=== PATIENT | female | born 1950 | race Caucasian/White ===

== ENCOUNTER 2020-06-01 06:14 | Inpatient (IN) | payer OTHER ==
[2020-05-12 12:57] LABS: Basophils # (auto) 0.1 10 ^3/uL (0-0.2); Basophils % (auto) 0.8 % (0.0-2.0); Eosinophils # (auto) 0.1 10 ^3/uL (0-0.8); Eosinophils % (auto) 0.8 % (0.0-7.0); Hematocrit 38.8 % (36.0-46.0); Hemoglobin 12.8 g/dL (12.2-16.2); Lymphocytes # (auto) 1.6 10 ^3/uL (0.4-5.4); Lymphocytes % (auto) 23.7 % (10.0-50.0); Mean Corpuscular Hemoglobin 29.1 pg (28.0-32.0); Mean Corpuscular Hgb Conc. 32.9 g/dL (32.0-36.0); Mean Corpuscular Volume 88.5 fL (80.0-100.0); Monocytes # (auto) 0.4 10 ^3/uL (0-1.3); Monocytes % (auto) 5.6 % (0.0-12.0); Neutrophils # (auto) 4.7 10 ^3/uL (1.6-8.6); Neutrophils % (auto) 69.1 % (37.0-80.0); Platelet Count (auto) 215 10^3/uL (140-450); Red Blood Cells 4.39 10^6/uL (4.0-5.20); Red Cell Distribution Width 14.6 % (11.8-14.3); White Blood Cell 6.8 10^3/uL (4.4-10.8)
[2020-05-12 13:14] LABS: INR 1.03 (0.9-1.15); Partial Thromboplastin Time 23.6 sec (23.64-32.05)
[2020-05-12 13:28] LABS: Albumin 3.6 g/dL (3.4-5.0); BUN/Creatinine Ratio 33.3; Calcium 8.8 mg/dL (8.5-10.1)
[2020-05-12 13:30] LABS: Bilirubin, Total 0.4 mg/dL (0.2-1.0); Total Protein 7.4 g/dL (6.4-8.2)
[2020-05-14 11:18] LABS: Urine Bacteria NONE SEEN /hpf (None Seen); Urine Blood Negative /uL (Negative); Urine Specific Gravity 1.025 (1.001-1.035); Urine WBC 6 /hpf (0 - 5)
[2020-05-26 09:35] LABS: Basophils # (auto) 0 10 ^3/uL (0-0.2); Basophils % (auto) 0.5 % (0.0-2.0); Eosinophils # (auto) 0 10 ^3/uL (0-0.8); Eosinophils % (auto) 0.3 % (0.0-7.0); Hematocrit 39.3 % (36.0-46.0); Hemoglobin 12.9 g/dL (12.2-16.2); Lymphocytes # (auto) 1.1 10 ^3/uL (0.4-5.4); Lymphocytes % (auto) 18.5 % (10.0-50.0); Mean Corpuscular Hemoglobin 29.1 pg (28.0-32.0); Mean Corpuscular Hgb Conc. 32.8 g/dL (32.0-36.0); Mean Corpuscular Volume 88.7 fL (80.0-100.0); Monocytes # (auto) 0.3 10 ^3/uL (0-1.3); Monocytes % (auto) 4.5 % (0.0-12.0); Neutrophils # (auto) 4.4 10 ^3/uL (1.6-8.6); Neutrophils % (auto) 76.2 % (37.0-80.0); Platelet Count (auto) 194 10^3/uL (140-450); Red Blood Cells 4.43 10^6/uL (4.0-5.20); White Blood Cell 5.8 10^3/uL (4.4-10.8)
[2020-05-26 09:57] LABS: INR 1.01 (0.9-1.15); Partial Thromboplastin Time 23.3 sec (23.0-31.2)
[2020-05-26 10:13] LABS: Albumin 3.7 g/dL (3.4-5.0); Potassium 3.6 mmol/L (3.5-5.1)
[2020-05-26 10:18] LABS: BUN/Creatinine Ratio 26.5; Bilirubin, Total 0.5 mg/dL (0.2-1.0); Total Protein 7.1 g/dL (6.4-8.2)
[~2020-06-01] VITALS: Ht 152.4 cm; Wt 77.5 kg
[2020-06-01] VITALS (46 sets, daily range): BP systolic 105–151; BP diastolic 48–72
[2020-06-01] MEDS ORDERED: BUPIVACAINE 0.25% INJ 50ML VIAL ONE (07:11)
[2020-06-01] MEDS ORDERED: BUPIVACAINE W/ EPINEPH 0.25% INJ 50ML MDV ONE (07:11)
[2020-06-01] MEDS ORDERED: CLINDAMYCIN 600MG IV 50 ML IV ONE (07:29)
[2020-06-01] MEDS ORDERED: LIDOCAINE 1% (LOCAL ANESTH.) PF 5ml SDV ONE (07:46)
[2020-06-01] MEDS ORDERED: SUCCINYLCHOLINE CHLORIDE 20 MG/ML 10ML VIAL IV ONE (07:46)
[2020-06-01] MEDS ORDERED: ROCURONIUM 10MG/ML 10ML VIAL IV ONE (07:52)
[2020-06-01] MEDS ORDERED: PROPOFOL 10 MG/ML 20 ML IV ONE (07:52)
[2020-06-01] MEDS ORDERED: fentaNYL CITRATE 100 MCG/2 ML VL ONE (08:01)
[2020-06-01] MEDS ORDERED: ePHEDrine SULFATE 50 MG/ML AMP ONE (08:04)
[2020-06-01] MEDS ORDERED: STERILE WATER 10 ML ONE (08:04)
[2020-06-01] MEDS ORDERED: NALOXONE HCL 0.4 MG/ML VIAL IV PRN (09:00)
[2020-06-01] MEDS ORDERED: ONDANSETRON HCL 4 MG/2 ML VIAL IV PRN ×2 (09:00→09:30)
[2020-06-01] MEDS ORDERED: HYDROmorphone HCL 2 MG/ML VL IV PRN (09:00)
[2020-06-01] MEDS ORDERED: ePHEDrine SULFATE 50 MG/ML AMP IV PRN (09:00)
[2020-06-01] MEDS ORDERED: MIDAZOLAM HCL 1MG/1ML-2 ML VIAL ONE (09:27)
[2020-06-01] MEDS ORDERED: MIDAZOLAM DRIP 50 mg/50mL 50 ML IV SCH (09:29)
[2020-06-01] MEDS ORDERED: D5W/SOD CHL 0.45%/KCL 20MEQ 1,000 ML IV SCH (09:30)
[2020-06-01] MEDS ORDERED: MIDAZOLAM DRIP 50 mg/50mL 50 ML IV ONE (09:36)
[2020-06-01] MEDS: HYDROmorphone HCL 2 MG/ML VL IV PRN ×3 (10:16→11:27)
--- NOTE | 2020-06-01 10:46 | NUR ---
VENT SETTINGS CHANGED TO AC RR 12, VT550, PEEP 5, DECREASED FIO2 TO 35%. SPO2 100% AFTER CHANGE. RN AWARE.
--- NOTE | 2020-06-01 11:15 | NUR ---
Dr Hubbard aware of abg results, vent settings changed to ac rr 12, vt 500, peep5, 35% fio2. KAYLEN Machado at bedside and aware of changes as well.
[2020-06-01] MEDS ORDERED: NITROGLYCERIN 0.4 MG SL TAB SL PRN (13:15)
[2020-06-01] MEDS ORDERED: MORPHINE SULF INJ 2 MG/ML SYRINGE 1ML IV PRN ×2 (13:15)
--- NOTE | 2020-06-01 14:30 | NUR ---
Admit to ICU from OR on vent CATHERINE PAULA admitted to ICU via gurney on monitor worker, intubated and being bagged by Respiratory Therapist. Patient transfered to bed, connected to mechanical ventilator by therapist, GURJIT at bedside. Patient connected to ICU monitoring, weighed by bedscale, oriented to George byrne RN, unit, ventilator and sedation.
[2020-06-01] MEDS: CLINDAMYCIN 600MG IV 50 ML IV SCH ×2 (15:13→21:39)
[2020-06-01] MEDS: D5W/SOD CHL 0.45%/KCL 20MEQ 1,000 ML IV SCH (15:13)
[2020-06-01] MEDS: MIDAZOLAM DRIP 50 mg/50mL 50 ML IV SCH ×2 (15:14→21:00)
--- NOTE | 2020-06-01 17:20 | NUR ---
SPOKE WITH BROTHER LIVE, ADMISSION COMPLETED
--- NOTE | 2020-06-01 19:30 | NUR ---
REPORT GIVEN TO SCRAP WHEELER RN
--- NOTE | 2020-06-01 22:00 | NUR ---
PAGED HOSPITALIST CPAP TRIAL AM, PT ON VERSED, BITING TUBE.
[2020-06-02] VITALS (61 sets, daily range): BP systolic 83–145; BP diastolic 38–65
[2020-06-02] MEDS: MIDAZOLAM DRIP 50 mg/50mL 50 ML IV SCH ×3 (00:10→10:29)
--- NOTE | 2020-06-02 00:15 | NUR ---
COOLING MEASURES APPLIED ICE PACK TO LEFT AXILLA, BEHIND NECK, ABDOMEN. APPLYING ICE BACK TO INCISION FOR 20 MIN EVERY TWO HOURS PER DAY SHIFT REPORT
[2020-06-02] MEDS: D5W/SOD CHL 0.45%/KCL 20MEQ 1,000 ML IV SCH ×3 (00:57→19:15)
--- NOTE | 2020-06-02 01:10 | NUR ---
PAGED HOSPITALIST SECOND PAGE CPAP AM, UNABLE TITRATE VERSED DOWN, PATIENT BITING ETT TUBE AGAIN, HIGH PRESSURE ALARM SETS OFF.
--- NOTE | 2020-06-02 01:40 | NUR ---
HOSPITALIST CALLED BACK RECEIVED NEW ORDER (FENT)
[2020-06-02] MEDS ORDERED: fentaNYL Drip 2500mCg/250mlNS 250 ML IV ONE (01:41)
--- NOTE | 2020-06-02 01:50 | NUR ---
CALLED PHARMACY PATIENT ALLERGIC TO CODEINE NEW ORDER FENTANYL PER [facility] OK TO START FENTANYL
[2020-06-02] MEDS: fentaNYL Drip 2500mCg/250mlNS 250 ML IV SCH ×2 (01:57→18:56)
--- NOTE | 2020-06-02 03:40 | NUR ---
RT AT BEDSIDE PATIENT PERIODICALLY BITES ETT, TRIGGERS HIGH PRESSURE ALARM. RT INSERTED BITE BLOCK
[2020-06-02 05:22] LABS: Basophils # (auto) 0 10 ^3/uL (0-0.2); Basophils % (auto) 0.2 % (0.0-2.0); Eosinophils # (auto) 0 10 ^3/uL (0-0.8); Eosinophils % (auto) 0.1 % (0.0-7.0); Hematocrit 35.2 % (36.0-46.0); Hemoglobin 11.8 g/dL (12.2-16.2); Lymphocytes # (auto) 0.9 10 ^3/uL (0.4-5.4); Lymphocytes % (auto) 9.3 % (10.0-50.0); Mean Corpuscular Hemoglobin 29.8 pg (28.0-32.0); Mean Corpuscular Hgb Conc. 33.5 g/dL (32.0-36.0); Mean Corpuscular Volume 88.8 fL (80.0-100.0); Monocytes # (auto) 0.7 10 ^3/uL (0-1.3); Monocytes % (auto) 7.3 % (0.0-12.0); Neutrophils % (auto) 83.1 % (37.0-80.0); Platelet Count (auto) 144 10^3/uL (140-450); Red Blood Cells 3.96 10^6/uL (4.0-5.20); Red Cell Distribution Width 14.7 % (11.8-14.3); White Blood Cell 9.6 10^3/uL (4.4-10.8)
[2020-06-02 05:40] LABS: Albumin 2.9 g/dL (3.4-5.0); Calcium 7.5 mg/dL (8.5-10.1); Potassium 3.6 mmol/L (3.5-5.1)
[2020-06-02 05:47] LABS: Bilirubin, Total 0.9 mg/dL (0.2-1.0); Total Protein 5.9 g/dL (6.4-8.2)
--- NOTE | 2020-06-02 06:20 | NUR ---
COOLING MEASURES - RECTAL TEMP 100.2 F APPLIED ICE PACKS TO BILATERAL AXILLA AND BEHIND NECK.
[2020-06-02] MEDS: CLINDAMYCIN 600MG IV 50 ML IV SCH ×3 (06:21→22:14)
--- NOTE | 2020-06-02 09:48 | NUR ---
WOUND CARE NOTE: Wound care in to see patient per wound care request due to intubation status and low Nehemiah score of 13, putting patient to high risk for skin breakdown. Patient is 70 years old male with admitting diagnosis of Thyroid Cancer. Patient is resting in ICU bed in Rm. 104. Patient is intubated,sedated and mechanically ventilated. Patient appears to be in no pain using Raines Khalil Faces Pain Scale. Skin assessment done with the assistance of patient's nurse, KAYLEN Pickard. No wound noted other than anterior neck incision s/p Total Thyroidectomy with C/D/I dressing. No pressure injury noted. Patient is receiving BID/PRN cleaning and application of Barrier cream to sacrum with preventative Opti foam sacral dressing. Repositioned patient for comfort facing her Lt side, redistributed pressure points with pillows. Patient tolerated well. KAYLEN Pickard at bedside. RECOMMENDATION: Nursing to continue with BID/PRN cleaning and application of Barrier cream to sacral, buttocks as preventative, frequent turning and repositioning schedule as condition permits, redistribute pressure points with pillows, elevate heels on pillows, continue monitoring by wound care while patient is mechanically ventilated and Nehemiah score is <18. Addendum: 06/02/20 at 1544 by Roxie Pemberton RN Amended: Links added.
[2020-06-02] MEDS: FAMOTIDINE (10MG/ML) 2ML VL IV SCH (10:09)
[2020-06-02] MEDS: hydrALAZINE HCL 20 MG/ML VL IV PRN (10:14)
[2020-06-02] MEDS: ACETAMINOPHEN 650 MG RECT SUPP PR PRN ×2 (10:15→22:17)
--- NOTE | 2020-06-02 12:01 | NUR ---
Nutrition Assessment/consult Notes please see attached link for complete assessment Est Energy needs BW 62 [id number] kcals (23-25 kcal/kgBW), Est Protein needs: 62-68 gms/day (1.0-1.1 gm/kgBW). Will continue to monitor and reassess prn. Addendum: 06/02/20 at [address] Amended: Links added.
[2020-06-02 14:37] LABS: Basophils # (auto) 0 10 ^3/uL (0-0.2); Basophils % (auto) 0.1 % (0.0-2.0); Eosinophils # (auto) 0 10 ^3/uL (0-0.8); Hematocrit 36.2 % (36.0-46.0); Hemoglobin 11.9 g/dL (12.2-16.2); Lymphocytes # (auto) 0.8 10 ^3/uL (0.4-5.4); Lymphocytes % (auto) 7.4 % (10.0-50.0); Mean Corpuscular Hemoglobin 29.6 pg (28.0-32.0); Mean Corpuscular Hgb Conc. 32.9 g/dL (32.0-36.0); Mean Corpuscular Volume 89.8 fL (80.0-100.0); Monocytes % (auto) 9.4 % (0.0-12.0); Neutrophils % (auto) 83.1 % (37.0-80.0); Nucleated Red Blood Cells % 0.1 %; Platelet Count (auto) 147 10^3/uL (140-450); Red Blood Cells 4.03 10^6/uL (4.0-5.20); Red Cell Distribution Width 15.1 % (11.8-14.3); White Blood Cell 10.8 10^3/uL (4.4-10.8)
[2020-06-02 14:44] LABS: Urine Bacteria FEW /hpf (None Seen); Urine Blood Negative /uL (Negative); Urine Hyaline Cast FEW /lpf (0 - 2); Urine Mucus FEW (None Seen); Urine Specific Gravity 1.018 (1.001-1.035); Urine WBC 3 /hpf (0 - 5)
[2020-06-02 15:01] LABS: Chloride 103 mmol/L (98-107); Potassium 4.9 mmol/L (3.5-5.1); Sodium 132 mmol/L (136-145)
[2020-06-02 15:05] LABS: Anion Gap 6 (5-15); BUN/Creatinine Ratio 14.5; Blood Urea Nitrogen 11 mg/dL (7-18); Calcium 6.8 mg/dL (8.5-10.1); Carbon Dioxide 23 mmol/L (21-32); GFR African American 96 mL/min; GFR Non-African American 80 mL/min; Glucose 362 mg/dL (74-106)
--- NOTE | 2020-06-02 19:30 | NUR ---
RECEIVED REPORT FROM DUY RN, PT. IN BED ORALLY INTUBATED WITH ETT #7.0 , 20 CM @ THE LIP CONNECTED TO A MECHANICAL VENT AT ORDERED SETTINGS. NGT TO RT. NARE INTACT. LUNGS ARE CLEAR WITH SOME FINE RHONCHI BILATERALLY. IV SITES TO LT. FA AND RT HAND INTACT, SITES SOFT AND NO SIGNS OF IN INFILTRATION. MITTENS INTACT, WAKES UP ON STIMULATION AND POSITIONING. FENTANYL AND VERSED DRIPS ARE INFUSING WELL. EPSTEIN INTACT AND DRAINING.SKIN WARM TO TOUCH.
--- NOTE | 2020-06-02 22:00 | NUR ---
T 101.1, TYLENOL SUPP GIVEN RECTALLY. REPOSITIONED PT. TO HER RT. SIDE.
[2020-06-03] VITALS (66 sets, daily range): BP systolic 77–135; BP diastolic 31–99
--- NOTE | 2020-06-03 01:30 | NUR ---
AM CARE AND COOLING MEASURES DONE, REPOSITIONED, SUCTIONED ORALLY AND VIA ETT.
--- NOTE | 2020-06-03 04:05 | NUR ---
NESS LOW, IN THE 80s SYSTOLIC AND 40s MAP, DR. WILSON ( COVERING FOR DR. MCINTYRE) WAS CALLED AND NOTIFIED ABOUT LOW BP AND HIGH TEMP. SHE ORDERED 1L NS BOLUS.
[2020-06-03 04:08] LABS: Basophils # (auto) 0 10 ^3/uL (0-0.2); Basophils % (auto) 0.4 % (0.0-2.0); Eosinophils # (auto) 0 10 ^3/uL (0-0.8); Eosinophils % (auto) 0.1 % (0.0-7.0); Hematocrit 35.4 % (36.0-46.0); Hemoglobin 11.6 g/dL (12.2-16.2); Lymphocytes # (auto) 1.3 10 ^3/uL (0.4-5.4); Lymphocytes % (auto) 10.1 % (10.0-50.0); Mean Corpuscular Hemoglobin 29.1 pg (28.0-32.0); Mean Corpuscular Hgb Conc. 32.7 g/dL (32.0-36.0); Mean Corpuscular Volume 89.1 fL (80.0-100.0); Monocytes # (auto) 1.1 10 ^3/uL (0-1.3); Monocytes % (auto) 8.5 % (0.0-12.0); Neutrophils # (auto) 10.3 10 ^3/uL (1.6-8.6); Neutrophils % (auto) 80.9 % (37.0-80.0); Platelet Count (auto) 145 10^3/uL (140-450); Red Blood Cells 3.97 10^6/uL (4.0-5.20); Red Cell Distribution Width 14.7 % (11.8-14.3); White Blood Cell 12.8 10^3/uL (4.4-10.8)
[2020-06-03 04:25] LABS: BUN/Creatinine Ratio 20.7; Calcium 7.4 mg/dL (8.5-10.1)
[2020-06-03] MEDS ORDERED: SODIUM CHLORIDE 0.9% 1,000 ML IV ONE (04:30)
[2020-06-03] MEDS: ACETAMINOPHEN 650 MG RECT SUPP PR PRN (05:15)
[2020-06-03] MEDS: D5W/SOD CHL 0.45%/KCL 20MEQ 1,000 ML IV SCH ×2 (05:15→15:15)
[2020-06-03] MEDS: CLINDAMYCIN 600MG IV 50 ML IV SCH ×4 (06:16→22:10)
[2020-06-03] MEDS ORDERED: SODIUM BICARBONATE 8.4 % INJ 50ML VIAL IV ONE (10:00)
[2020-06-03] MEDS: FAMOTIDINE (10MG/ML) 2ML VL IV SCH (10:46)
[2020-06-03] MEDS: MIDAZOLAM DRIP 50 mg/50mL 50 ML IV SCH (13:12)
[2020-06-03] MEDS ORDERED: CLINDAMYCIN 600MG IV 100 ML IV SCH (14:00)
[2020-06-03] MEDS: ALBUTEROL SULF 2.5 MG/0.5ML(0.5%) NEB SOLN NEB SCH ×2 (16:34→18:19)
[2020-06-04] VITALS (61 sets, daily range): BP systolic 82–168; BP diastolic 41–91
[2020-06-04] MEDS: ALBUTEROL SULF 2.5 MG/0.5ML(0.5%) NEB SOLN NEB SCH ×4 (00:07→18:34)
--- NOTE | 2020-06-04 00:42 | NUR ---
At start of shift temp was 102. Pt maintaining Temps of 100.2-101.0. Tylenol suppository administered and ice packs placed on pt.
[2020-06-04] MEDS: ACETAMINOPHEN 650 MG RECT SUPP PR PRN (00:52)
[2020-06-04] MEDS: D5W/SOD CHL 0.45%/KCL 20MEQ 1,000 ML IV SCH ×3 (01:15→17:44)
[2020-06-04 04:21] LABS: Basophils # (auto) 0 10 ^3/uL (0-0.2); Basophils % (auto) 0.2 % (0.0-2.0); Eosinophils # (auto) 0 10 ^3/uL (0-0.8); Eosinophils % (auto) 0.1 % (0.0-7.0); Hematocrit 33.1 % (36.0-46.0); Hemoglobin 10.7 g/dL (12.2-16.2); Lymphocytes # (auto) 0.9 10 ^3/uL (0.4-5.4); Lymphocytes % (auto) 6.9 % (10.0-50.0); Mean Corpuscular Hemoglobin 28.9 pg (28.0-32.0); Mean Corpuscular Hgb Conc. 32.2 g/dL (32.0-36.0); Mean Corpuscular Volume 89.7 fL (80.0-100.0); Monocytes # (auto) 1.1 10 ^3/uL (0-1.3); Monocytes % (auto) 8.3 % (0.0-12.0); Neutrophils # (auto) 10.9 10 ^3/uL (1.6-8.6); Neutrophils % (auto) 84.5 % (37.0-80.0); Platelet Count (auto) 135 10^3/uL (140-450); Red Blood Cells 3.69 10^6/uL (4.0-5.20); Red Cell Distribution Width 14.5 % (11.8-14.3); White Blood Cell 12.9 10^3/uL (4.4-10.8)
[2020-06-04] MEDS: CLINDAMYCIN 600MG IV 50 ML IV SCH ×3 (06:00→22:52)
--- NOTE | 2020-06-04 06:09 | NUR ---
PT RECEIVED ON VENT #V5, PLUGGED INTO A RED OUTLET AND PROPER O2 SOURCE. AMBU BAG/MASK AT BEDSIDE. ALARMS ARE PROPERLY SET, FUNCTIONING,AND AUDIBLE. ETT SECURED WITH A HOLISTER.NO LIP BREAKDOWN NOTED. SKIN IS COOL AND DRY TO THE TOUCH WITH NO EDEMA NOTED ON ANY APPENDICULARS. BILATERAL BS REVEAL COARSE. SX WITH MODERATE, DURAND, THIN RETURN. MED NEB TX GIVEN INLINE,TOLERATED WELL. POC: MAINTAIN ADEQUATE OXYGENATION,VENTILATION,AND PULMONARY HYGIENE.
--- NOTE | 2020-06-04 06:23 | NUR ---
Elevated temp's resolved at 98.4. Pt given a CHG bath. Pain seemed to be relieved w/ice packs under neck.
[2020-06-04 08:42] LABS: Calcium 7.8 mg/dL (8.5-10.1); Potassium 3.5 mmol/L (3.5-5.1)
[2020-06-04 08:44] LABS: BUN/Creatinine Ratio 21.6
[2020-06-04] MEDS: FAMOTIDINE (10MG/ML) 2ML VL IV SCH (10:08)
--- NOTE | 2020-06-04 10:30 | NUR ---
FENTANYL OFF AT THIS TIME
--- NOTE | 2020-06-04 10:39 | NUR ---
Respiratory note: PT TOO GROGGY TO PROCEED WITH CPAP AT THIS TIME. NIF -0.4. WILL CONTINUE TO MONITOR PT FOR WEANING READINESS.KAYLEN LEE AT BEDSIDE.
--- NOTE | 2020-06-04 11:25 | NUR ---
Nutrition Followup/Consult Notes Pt wt is 65.1 kg Pt was sedated, s/p thyroidectomy, NPO with TF suspended d/t scheduled CPAP trial today per RN. Will continue to monitor PO status, skin status, pertinent labs and weight trends. Will f/u in 2-3 days. Est Energy needs BW 62 [id number] kcals (23-25 kcal/kgBW), Est Protein needs: 62-68 gms/day (1.0-1.1 gm/kgBW). Will continue to monitor and reassess prn. LABS: Gluc 120 H, Ca 7.8 L, Alb 2.9 L GI: Last BM unknown per RN doc BS: 13 mod risk. Refer to wound assessment report for full details. PES: 1) Altered nutrition related lab values rt current chronic medical condition aeb hyperglycemia, mod hypoalb 2) Impaired swallowing r.t current medical condition aeb pt`s intubated sedated with order of NPO Comments 1) Advance diet as medically feaisble 2) Consider EN support with Osmolite @ 50 ml/hr per md approval 3) Continue current plan of care
--- NOTE | 2020-06-04 11:30 | NUR ---
DR Lorenzo QUIROS AT BEDSIDE AWARE FENTANYL OFF AT 1030 AND RT PERFORMED CPAP AFTER BUT PATIENT STILL VERY SLEEPY AND RR DROPPED UPON CHANGING FROM SIMV TO CPAP.
--- NOTE | 2020-06-04 13:00 | NUR ---
Respiratory note: PT PLACED ON CPAP TRIAL, TOLERATING WELL. RN JESUS AWARE OF CHANGES. ABG TO FOLLOW IN ONE HOUR
--- NOTE | 2020-06-04 13:50 | NUR ---
Respiratory note: ABG DRAWN ON CPAP, RESULTS AVAILABLE IN [facility]. WEANING PARAMETERS ARE FOLLOWS: NIF 29, RSBI 56, LEAK TEST 75, UNABLE TO OBTAIN VC. PT TAKEN OFF CPAP AND PLACED BACK ON SIMV. PT BECAME TACHYPNEIC AND TACHYCARDIC.KAYLEN LEE AT BEDSIDE.
[2020-06-04] MEDS: MIDAZOLAM DRIP 50 mg/50mL 50 ML IV SCH ×2 (14:26→17:44)
[2020-06-04] MEDS: fentaNYL Drip 2500mCg/250mlNS 250 ML IV SCH (14:27)
--- NOTE | 2020-06-04 14:28 | NUR ---
PAGED DR QUIROS REGARDING ABG RESULTS AND DR LOMELI STATING PATIENT NEEDS STEROIDS AND SOMEONE TO BE AT BEDSIDE WHO CAN REINTUBATE IF NEEDED.
--- NOTE | 2020-06-04 14:41 | NUR ---
SPOKE WITH DR Lorenzo QUIROS REGARDING ABG RESULTS INCLUDING LEAK TEST 75. DR AWARE PATIENT WAS PLACED BACK ON SIMV MODE AND FENTANYL DRIP AT 25 MCG/HR. AWARE PATIENT HR AND BP WAS ELEVATED. DR ALSO ORDERED SOLUMEDROL 80 MG IV ONCE AND Q8H.
[2020-06-04] MEDS ORDERED: methylPREDNISolone SOD SUCC 125 MG/2 ML VL IV ONE (14:45)
--- NOTE | 2020-06-04 15:03 | NUR ---
REPORT GIVEN TO NIELS ABDULLAHI DUE TO CHANGE IN PATIENT ASSIGNMENT
--- NOTE | 2020-06-04 15:24 | NUR ---
DR MCINTYRE AWARE THAT PENDING LABS CORTISOL AM AND FREE T4 WILL NOT BE RESULTED UNTIL SATURDAY PER LAB THEY DO NOT RUN THOSE TESTS ON WEEKENDS. DR ALSO AWARE OF CPAP TRIAL DONE BUT LEAK TEST ONLY 75 AND PATIENT COULD NOT BE SAFELY EXTUBATED AND THAT STEROIDS WERE STARTED PER DR Lorenzo QUIROS.
--- NOTE | 2020-06-04 18:00 | NUR ---
SHIFT SUMMARY TOOK OVER CARE OF PATIENT, FROM ANOTHER RN, PATIENT STILL RESTLESS FROM CPAP TRIAL, VERSED DRIP RESUMED TO KEEP PATIENT RELAXED, BATHED WITH COLD WET WASH CLOTH. RESTAL TUBE OUT AND REPLACED FOR TEMPERATURE MONITORING. POSITIONED WITH HEAD UP, EPSTEIN OUTPUT GOOD.
--- NOTE | 2020-06-04 20:00 | NUR ---
hyperthermia Temp 100.6, rectally, cooling measures provided
--- NOTE | 2020-06-04 20:15 | NUR ---
IV insertion IV access obtained, via clean sterile technique by inserting 20 gauge catheter at left hand after 1st attempt. IV secured properly. No trauma to site. Patient tolerated procedure well. Note: IV in the right hand was leaking, d/c, pressure dressing applied to site
--- NOTE | 2020-06-04 22:00 | NUR ---
Sinus bradycardia 40-50's, SBP 80-90's with MAP below 60 sustaining for more than an hour, decreased sedation with fentanyl to 60 mcg/hr.
--- NOTE | 2020-06-04 22:00 | NUR ---
Temp rechecked 98.8
[2020-06-04] MEDS: methylPREDNISolone SOD SUCC 125 MG/2 ML VL IV SCH (22:52)
[2020-06-05] VITALS (81 sets, daily range): BP systolic 83–191; BP diastolic 40–96
[2020-06-05] MEDS: ALBUTEROL SULF 2.5 MG/0.5ML(0.5%) NEB SOLN NEB SCH ×5 (00:06→23:59)
--- NOTE | 2020-06-05 04:00 | NUR ---
Patient bathe/linen change Patient given complete bath. Skin integrity assessed for any changes. Full linens and gown changed, optifoam placed on sacrum. Patient repositioned for comfort.
[2020-06-05 05:05] LABS: Albumin 2.4 g/dL (3.4-5.0); Calcium 7.7 mg/dL (8.5-10.1); Potassium 4.1 mmol/L (3.5-5.1)
[2020-06-05 05:09] LABS: BUN/Creatinine Ratio 16.9; Bilirubin, Total 0.6 mg/dL (0.2-1.0); Total Protein 5.5 g/dL (6.4-8.2)
[2020-06-05] MEDS: methylPREDNISolone SOD SUCC 125 MG/2 ML VL IV SCH ×3 (05:47→22:00)
[2020-06-05] MEDS: CLINDAMYCIN 600MG IV 50 ML IV SCH ×3 (05:47→22:00)
[2020-06-05] MEDS: D5W/SOD CHL 0.45%/KCL 20MEQ 1,000 ML IV SCH ×2 (05:49→15:24)
--- NOTE | 2020-06-05 07:15 | NUR ---
START OF SHIFT RECEIVED PATIENT ORALLY INTUBATED AND ON VENTILATOR SUPPORT, NO SEDATION AND ALLOWING VENTILATOR SUPPORT, NOTED LEFT ARM SWOLEN ABOVE IV SITES, IV STOPPED AND NEW IV AT RIGHT WRIST INSERTED TO CONTINUE IV FLUIDS. EPSTEIN IN PLACE AND DRAINING WELL, ATTEMPTED ORAL CARE AND PATIENT SHAKES HER HEAD FOR NO, ORAL SECRETIONS SUCTIONED .
[2020-06-05 07:57] LABS: Basophils # (auto) 0 10 ^3/uL (0-0.2); Eosinophils # (auto) 0 10 ^3/uL (0-0.8); Hematocrit 34.9 % (36.0-46.0); Hemoglobin 11.6 g/dL (12.2-16.2); Lymphocytes # (auto) 0.3 10 ^3/uL (0.4-5.4); Lymphocytes % (auto) 2.9 % (10.0-50.0); Mean Corpuscular Hemoglobin 29.3 pg (28.0-32.0); Mean Corpuscular Hgb Conc. 33.3 g/dL (32.0-36.0); Monocytes # (auto) 0.2 10 ^3/uL (0-1.3); Monocytes % (auto) 2.5 % (0.0-12.0); Neutrophils # (auto) 8.7 10 ^3/uL (1.6-8.6); Neutrophils % (auto) 94.6 % (37.0-80.0); Platelet Count (auto) 171 10^3/uL (140-450); Red Blood Cells 3.96 10^6/uL (4.0-5.20); Red Cell Distribution Width 14.5 % (11.8-14.3); White Blood Cell 9.2 10^3/uL (4.4-10.8)
--- NOTE | 2020-06-05 09:00 | NUR ---
LEAK TEST 60 ML. NOTIFIED RN CPAP trial not initiated at this time, due to leak test results less than 100 ml, per Dr. Haines's orders.
[2020-06-05] MEDS: FAMOTIDINE (10MG/ML) 2ML VL IV SCH (09:58)
--- NOTE | 2020-06-05 12:00 | NUR ---
RN NOTES PATIENT MORE RELAXED ON MINIMAL DOSE FENTANYL, CONTINUES TO MOVE BOTH ARMS WHEN STIMULATED, OTHERWISE RESTING BETTER. LEAK TEST PER RT 50, WILL NOT CPAP UNTIL LEAK TEST OF 100 AND HIGHER.
--- NOTE | 2020-06-05 14:54 | NUR ---
DR. QUIROS AT BEDSIDE TO SEE PT Updated MD on leak test and discussed POC. Pt remains with leak test less than 100 ml. Per MD, perform leak test again tomorrow, and if greater than 100ml, proceed with CPAP trial. Will endorse to oncoming RT. RN at bedside and also aware.
--- NOTE | 2020-06-05 18:00 | NUR ---
shift summary Remains on ventilator support with fentanyl drip at 100mcg/hour to keep patient relaxed and calm, unable to try CPAP trial today due to leak test less than 100, doctor aware and will keep patient relaxed till able to wean. Nasogastric tube remains clamped, no residual, jamison intact with good output. one episode of bradycardia in high 40, not sustained and bp ok. Remaions to fight with oral suctioning and patient will try to sit up when aroused.
--- NOTE | 2020-06-05 18:45 | NUR ---
RN Notes Attempted to get another peripheral iv line unable to get vein and left arm swollen and reddened. right arm also slightly swolen, will endorse to oncoming nurse.
[2020-06-05] MEDS: MIDAZOLAM DRIP 50 mg/50mL 50 ML IV SCH (20:30)
--- NOTE | 2020-06-05 23:27 | NUR ---
Pt's HR consistently in mid 40's over last couple of hours with lowest being observed at 42. Pt sleeping. Called MD and spoke w/Dr. Espinosa. EKG ordered.
[2020-06-06] VITALS (83 sets, daily range): BP systolic 72–186; BP diastolic 37–96
--- NOTE | 2020-06-06 00:07 | NUR ---
EKG completed. Once pt was awakened to receive EKG her HR went back to tachycardia and elevated bp.
[2020-06-06] MEDS: D5W/SOD CHL 0.45%/KCL 20MEQ 1,000 ML IV SCH ×3 (00:53→21:15)
--- NOTE | 2020-06-06 01:07 | NUR ---
Pt resting. Vital signs stable. Will continue to monitor.
[2020-06-06] MEDS: fentaNYL Drip 2500mCg/250mlNS 250 ML IV SCH ×2 (01:37→04:39)
[2020-06-06] MEDS: hydrALAZINE HCL 20 MG/ML VL IV PRN ×3 (03:28→16:44)
[2020-06-06 04:20] LABS: Basophils # (auto) 0 10 ^3/uL (0-0.2); Eosinophils # (auto) 0 10 ^3/uL (0-0.8); Hemoglobin 11.7 g/dL (12.2-16.2); Lymphocytes # (auto) 0.3 10 ^3/uL (0.4-5.4); Lymphocytes % (auto) 2.6 % (10.0-50.0); Mean Corpuscular Hemoglobin 29.1 pg (28.0-32.0); Mean Corpuscular Hgb Conc. 33.3 g/dL (32.0-36.0); Mean Corpuscular Volume 87.4 fL (80.0-100.0); Monocytes # (auto) 0.4 10 ^3/uL (0-1.3); Monocytes % (auto) 3.5 % (0.0-12.0); Neutrophils # (auto) 10.6 10 ^3/uL (1.6-8.6); Neutrophils % (auto) 93.9 % (37.0-80.0); Platelet Count (auto) 229 10^3/uL (140-450); Red Blood Cells 4.01 10^6/uL (4.0-5.20); Red Cell Distribution Width 14.6 % (11.8-14.3); White Blood Cell 11.3 10^3/uL (4.4-10.8)
[2020-06-06 04:45] LABS: Albumin 2.8 g/dL (3.4-5.0); Calcium 8.2 mg/dL (8.5-10.1)
[2020-06-06 04:49] LABS: BUN/Creatinine Ratio 17.9; Bilirubin, Total 0.4 mg/dL (0.2-1.0); Total Protein 6.9 g/dL (6.4-8.2)
--- NOTE | 2020-06-06 05:38 | NUR ---
Chg bath given. Pt resting. Will continue to monitor.
[2020-06-06] MEDS: CLINDAMYCIN 600MG IV 50 ML IV SCH ×2 (06:00→13:21)
[2020-06-06] MEDS: methylPREDNISolone SOD SUCC 125 MG/2 ML VL IV SCH ×3 (06:00→21:15)
[2020-06-06] MEDS: ALBUTEROL SULF 2.5 MG/0.5ML(0.5%) NEB SOLN NEB SCH ×3 (06:40→18:37)
--- NOTE | 2020-06-06 08:00 | NUR ---
Opening Shift Note Assumed care of patient, ET to [facility] vent, light sedation, plan to CPAP patient once leak test above 100. No S/S of distress/SOB or pain. See interventions for complete assessment. Bed locked on low position, side rails up x2, bed alarms on at all times, will continue to monitor for changes Q1hr and PRN.
--- NOTE | 2020-06-06 08:15 | NUR ---
Patient's temperature 100F orally, cooling measures done. Will continue to monitor.
--- NOTE | 2020-06-06 09:04 | NUR ---
Dr Sheets at bedside, updated on patient's status. Patient seen and examined. Plan to CPAP patient today. Sedation turned off.
[2020-06-06] MEDS: FAMOTIDINE (10MG/ML) 2ML VL IV SCH (10:09)
--- NOTE | 2020-06-06 10:40 | NUR ---
Midline Placement: 18g/10cm midline inserted via right basilic vein using Ultrasound. Sterile technique utilized. Blood return obtained from lumen and flushed easily with NS using proper technique. Midline secured with saline lock; biodisc and occlusive dressing applied. Primary RN notified.
--- NOTE | 2020-06-06 10:45 | NUR ---
Respiratory note: VENT CHANGES PER DR. FISHER RR 10, VT 400. ABG IN 4 HOURS
--- NOTE | 2020-06-06 11:15 | NUR ---
Respiratory note: LEAK TEST 58ML RN INFORMED.
--- NOTE | 2020-06-06 11:35 | NUR ---
Nutrition Followup/Consult Notes Pt wt is 62.3 kg Pt was sedated, NPO since 06/01 d/t planning CPAP trial pending leak test results >100 per RN. Will continue to monitor PO status, skin status, pertinent labs and weight trends. Will f/u in 2-3 days. Est Energy needs BW 62 [id number] kcals (23-25 kcal/kgBW), Est Protein needs: 62-68 gms/day (1.0-1.1 gm/kgBW). Will continue to monitor and reassess prn. LABS: Gluc 179 H, Ca 8.2 L, Alb 2.8 L GI: Last BM unknown per RN doc BS: 13 mod risk. Refer to wound assessment report for full details. PES: 1) Altered nutrition related lab values rt current chronic medical condition aeb hyperglycemia, mod hypoalb 2) Impaired swallowing r.t current medical condition aeb pt`s intubated sedated with order of NPO Comments 1) Advance diet as medically feaisble 2) Consider EN support with Osmolite @ 50 ml/hr per md approval 3) Continue current plan of care
--- NOTE | 2020-06-06 11:55 | NUR ---
Paged Dr Campos and called back, informed of 58 leak test. verbalized understanding and states "Go ahead and CPAP patient." Will inform RT.
--- NOTE | 2020-06-06 12:33 | NUR ---
Received call from patient's brother Moreno who's able to provide password. Updated on patient's status and POC, verbalized understanding. All questions and concerns addressed.
--- NOTE | 2020-06-06 12:50 | NUR ---
Respiratory note: HELD ALBUTEROL DUE TO ELEVATED HR. RN INFORMED.
--- NOTE | 2020-06-06 12:51 | NUR ---
Paged Dr Hernandez and Dr Nicole called back. Updated on patient's status, MD verbalized understanding and gave orders for Ativan PRN.
[2020-06-06] MEDS ORDERED: LORazepam 2MG/ML-1ML VIAL IV PRN (13:00)
--- NOTE | 2020-06-06 14:30 | NUR ---
Respiratory note: CPAP TRIAL INITIATED HR 115, SPO2 96%, RR 18, BP 160/85.
--- NOTE | 2020-06-06 14:37 | NUR ---
Dr Hubbard at bedside, updated on patient's status. Patient seen and examined. Will carry out new orders.
--- NOTE | 2020-06-06 16:03 | NUR ---
Paged Dr Sheets and called back. Informed of ABG result. Updated on patient's status. MD verbalized understanding and states "Place patient on IMV 8 and CPAP in the morning."
--- NOTE | 2020-06-06 16:05 | NUR ---
Respiratory note: PLACED PATIENT BACK ON SIMV RR 8 PER . CPAP TRIAL AGAIN IN THE AM.
--- NOTE | 2020-06-06 16:15 | NUR ---
Fentanyl drip re-started.
--- NOTE | 2020-06-06 16:32 | NUR ---
assessment Patient is a 70 year old female who is on a vent in ICU. Per patients brother Moreno who is her POA prior to admission patient lived home with him for the past 6 months. Patient was admitted for surgery. Per Moreno patient went to her PCP for a lump in her throat. Patients PCP sent patient to the hospital for admission and surgery for malignant thyroid. Patient had no need for DME prior to admission. I informed Moreno patients post discharge needs to be determined afrer extubation and prior to discharge. I will continue to monitor and follow up as appropriate. Moreno verbalized understanding. Addendum: 06/06/20 at 1638 by Nancy BARFIELD Amended: Links added.
--- NOTE | 2020-06-06 19:30 | NUR ---
Opening Shift Note: Patient is intubated/sedated. ET size 7.0/21 @ lip. Settings: SIMV rate 8; vT 400; FiO2 30%; PEEP 5; PSV 8. Neuro: pupils 4 mm/brisk/reactive; moves all extremities; opens eyes to voice without sustained contact; + cough/gag; very anxious/restless fighting ventilator with increased RR; will increase sedation to maintain tital volumes and decrease RR. Cardio: NSR 90s - ST 100s; SBPs 120s-150s based on patient agitation; no pitting edema; pulses all palpable. Resp: anterior lung sounds coarse throughout; large amounts of thick creamy/yellow secretions from ET tube; min clear thin secretions from mouth. GI: Right nare NGT clamped; BS present; date of last BM unknown. : jamison inserted on 06/01/20 for strict I/O: yellow/clear. Skin: intact; patient is s/p total thyroidectomy with Dr. Hubbard on 06/01/20, anterior neck incision presents with significant swelling but steri strips over incision are CDI. IVs: LUE midline 18 g inserted on 06/06/20 running Fentanyl @ 125 mcg and 1/2 NS & D5W with 20 meq potassium @ 100 ml/hr. R. hand 22 g IID inserted on 06/05/20. Will continue to round/reposition/perform oral care prn.
--- NOTE | 2020-06-06 21:30 | NUR ---
Restlessness/agitation: Patient is currently on SIMV mode rate 8; current RR is 30-40s; patient very agitated/restless; BP 160s max; not sustaining adequate volume. 0.5 mg of Ativan given IVP per order.
--- NOTE | 2020-06-06 22:00 | NUR ---
Adverse reaction: Informed by RT that cuff has no air; unable to pull or insert air via syringe. RT notified Dr. Sheets; new order for STAT ABG. Page sent to electronic funds transfer coordinator for Dr. Nicole (Dr. Davis) related to RR low (6-8) still on SIMV mode; HR drop into the low 50s; and BP drop into the 70s/80s systolically. New orders received for Romazicon, benzo reversal agent, and 1 liter NS bolus. Will page after orders completed to update physician on patient status.
[2020-06-06] MEDS: FLUMAZENIL 0.1 MG/ML INJ 10ML MDV IV ONE ×2 (22:30→23:00)
--- NOTE | 2020-06-06 22:38 | NUR ---
RT NOTE: PT UNABLE TO MAINTAIN ADEQUATE TIDAL VOLUMES AND RESPIRATIONS ON SIMV. UNABLE TO ADD OR REMOVE AIR FROM ETT CUFF. PT SWITCHED TO AC 14 400 +5 .30, NO CUFF LEAK NOTED. ADEQUATE TIDAL VOLUMES AND RESPIRATIONS ON AC MODE. CALLED Larry ISRAEL AND NOTIFIED HIM OF PT CONDITION CHANGE. ABG ORDERED AND IF PT LEAK BECOMES EXCESSIVE TO HAVE ER MD PAGED FOR TUBE EXCHANGE.
[2020-06-06] MEDS ORDERED: FLUMAZENIL 0.1 MG/ML INJ 10ML MDV IV ONE ×2 (22:45→22:49)
[2020-06-06] MEDS ORDERED: SODIUM CHLORIDE 0.9% 1,000 ML IV ONE (22:45)
--- NOTE | 2020-06-06 23:00 | NUR ---
SENSITIVITY TO ATIVAN Ativan prn order discontinued per inspector final assembly conveyor line physician. Patient is extremely sensitive to medication causing drastic changes to vital signs. Will add to patient allergies/adverse reactions.
--- NOTE | 2020-06-06 23:20 | NUR ---
Dr. Glass (industrial relations representative for Dr. Nicole) paged to update on current patient status. Currently on AC rate 14, vT 400, FiO2 30%, PEEP 5. HR sustaining 70s-90s; BP 110s-120s; RR 20s. Patient pupils previously 2 pinpoint after administration of IVP Ativan 0.5 mg. Currently, pupils are 3 mm bilateral/brisk/reactive. 1 L bolus of NS also completed per order. Sedation had to be increased to ensure adequate volume pull from vent. Will continue to monitor all vital signs. CXR also ordered STAT for status change of peak pressures in 40s.
[2020-06-07] VITALS (95 sets, daily range): BP systolic 66–170; BP diastolic 34–96
[2020-06-07] MEDS ORDERED: SODIUM CHLORIDE 0.9% 1,000 ML IV ONE
[2020-06-07] MEDS: ALBUTEROL SULF 2.5 MG/0.5ML(0.5%) NEB SOLN NEB SCH ×4 (00:18→18:43)
--- NOTE | 2020-06-07 00:40 | NUR ---
Decrease in HR/BP again: SBPS 70s-80s and HR 40s-50s. Dr. Glass paged again for status change. New orders received for second dose of Romazicon 0.2 for benzo reversal. Will call after administration of medication to update on outcomes.
[2020-06-07] MEDS ORDERED: FLUMAZENIL 0.1 MG/ML INJ 10ML MDV IV ONE (00:45)
--- NOTE | 2020-06-07 01:05 | NUR ---
Return page to Dr. Glass in regards to current patient status. HR 50s-60s; SBP 95/62; RR 15-low 20s. Because Versed is in the same class as Ativan, new order received for propofol sedation per protocol for ventilator synchrony. Will start if patient does not pull adequate tital volumes.
[2020-06-07] MEDS ORDERED: PROPOFOL 100 ML IV ONE (01:13)
[2020-06-07] MEDS: fentaNYL Drip 2500mCg/250mlNS 250 ML IV SCH ×2 (01:36→15:09)
[2020-06-07] MEDS: PROPOFOL 100 ML IV SCH (01:38)
[2020-06-07] MEDS: NOREPINEPHRINE 8 MG/250ML KIT 250 ML IV SCH (02:30)
[2020-06-07] MEDS ORDERED: NOREPINEPHRINE 8 MG/250ML KIT 250 ML IV ONE (02:34)
[2020-06-07] MEDS: DOPamine 1600MCG/ML D5W 250 ML IV SCH ×2 (02:58→10:07)
[2020-06-07] MEDS ORDERED: DOPamine 1600MCG/ML D5W 250 ML IV ONE (02:59)
[2020-06-07] MEDS ORDERED: ETOMIDATE (2MG/ML) 20ML VIAL IV ONE (03:11)
[2020-06-07] MEDS ORDERED: SUCCINYLCHOLINE CHLORIDE 20 MG/ML 10ML VIAL IV ONE (03:12)
--- NOTE | 2020-06-07 03:15 | NUR ---
Page to Dr. Hubbard: Page was sent to notify surgeon of current situation with ET cuff/decreased volumes/changing vital signs. Explained that Dr. Gauthier is at bedside for the ET tube exchange with RTs present. Ok from Dr. Hubbard to proceed.
--- NOTE | 2020-06-07 03:20 | NUR ---
RT NOTE: PT LEAK OVER 150ML NOW AND UNABLE TO ADD AIR TO CUFF. MD JUAREZ AT BEDSIDE. ETT CHANGED USING TUBE EXCHANGER. REPLACED WITH 7.0@24CM AND RECURRED WITH OSBALDO. GOOD COLOR CHANGE ON ETCO2 DETECTOR AND BILATERAL BS. PT PLACED BACK ON VENT WITH PREVIOUS SETTINGS.
[2020-06-07 03:58] LABS: Basophils # (auto) 0 10 ^3/uL (0-0.2); Eosinophils # (auto) 0 10 ^3/uL (0-0.8); Hematocrit 33.5 % (36.0-46.0); Hemoglobin 10.8 g/dL (12.2-16.2); Lymphocytes # (auto) 0.4 10 ^3/uL (0.4-5.4); Lymphocytes % (auto) 4.7 % (10.0-50.0); Mean Corpuscular Hgb Conc. 32.4 g/dL (32.0-36.0); Mean Corpuscular Volume 92.6 fL (80.0-100.0); Monocytes # (auto) 0.7 10 ^3/uL (0-1.3); Monocytes % (auto) 7.7 % (0.0-12.0); Neutrophils # (auto) 7.7 10 ^3/uL (1.6-8.6); Neutrophils % (auto) 87.6 % (37.0-80.0); Nucleated Red Blood Cells % 0.1 %; Platelet Count (auto) 213 10^3/uL (140-450); Red Blood Cells 3.62 10^6/uL (4.0-5.20); Red Cell Distribution Width 15.9 % (11.8-14.3); White Blood Cell 8.8 10^3/uL (4.4-10.8)
[2020-06-07] MEDS ORDERED: SODIUM CHLORIDE 0.9% 500 ML IV ONE (04:00)
--- NOTE | 2020-06-07 04:05 | NUR ---
Update on status s/p ET exchange: Vital signs stable: HR 64, O2 saturation 100%, RR 14/15 with AC rate set at 14; BP 123/54, temp 98.8 rectal. Current drips: dopamine @ 11 mcg; Levophed was turned off at 0335; 1/2 NS & D5W @ 150 ml/hr; Fentanyl @ 200. Current vent settings: AC rate 14, vT 400, FiO2 50%, PEEP 5. ET size 7.0/24 @ lip. STAT CXR completed. Patient maintaining adequate tital volumes and peak pressures in the high 20s. Will continue to monitor patient status closely.
[2020-06-07 04:12] LABS: Potassium 4.5 mmol/L (3.5-5.1)
[2020-06-07 04:19] LABS: Albumin 2.5 g/dL (3.4-5.0); BUN/Creatinine Ratio 20.9; Bilirubin, Total 0.4 mg/dL (0.2-1.0)
[2020-06-07] MEDS: methylPREDNISolone SOD SUCC 125 MG/2 ML VL IV SCH ×3 (05:01→21:32)
[2020-06-07] MEDS: D5W/SOD CHL 0.45%/KCL 20MEQ 1,000 ML IV SCH ×3 (05:45→18:16)
--- NOTE | 2020-06-07 08:00 | NUR ---
Aspirated 100ml of dark green drain from NGT, connected to LIS. Will inform .
--- NOTE | 2020-06-07 08:00 | NUR ---
Opening Shift Note Assumed care of patient, ET to [facility] vent, sedated. No S/S of distress/SOB or pain. See interventions for complete assessment. Bed locked on low position, side rails up x2, bed alarms on at all times, will continue to monitor for changes Q1hr and PRN.
--- NOTE | 2020-06-07 08:29 | NUR ---
LEAK TEST 65 ML. NOTIFIED RN
--- NOTE | 2020-06-07 09:40 | NUR ---
Dr Sheets at bedside, updated on patient's status. Patient seen and examined. Received order for Neck CT scan, orders read back and verified. Will carry out.
[2020-06-07] MEDS: FAMOTIDINE (10MG/ML) 2ML VL IV SCH (10:05)
--- NOTE | 2020-06-07 10:37 | NUR ---
Dr Nicole at bedside, updated on patient's status. Patient seen and examined. Will carry out new orders.
--- NOTE | 2020-06-07 12:42 | NUR ---
Patient out of room to CT scan.
[2020-06-07] MEDS: MIDAZOLAM DRIP 50 mg/50mL 50 ML IV SCH (12:58)
--- NOTE | 2020-06-07 13:05 | NUR ---
Patient back to room from CT scan.
--- NOTE | 2020-06-07 13:05 | NUR ---
RT Transport Note: Patient transported to RADIOLOGY for CT scan with KAYLEN Arambula. Patient transported on traffic enumerator with alarms set and audible, transport vent connected to O2 tank. Patient returned to room with no adverse reaction noted, placed back on ventilator with previous settings. Transport completed without incident.
--- NOTE | 2020-06-07 14:22 | NUR ---
Paged Dr Sheets regarding neck CT scan report and called back. Informed of 2x4x5 gas collection on midline neck per CT scan report. MD verbalized understanding and states "Hold off on CPAP, inform Dr Hubbard". Paged Dr Hubbard, awaiting call back.
--- NOTE | 2020-06-07 14:30 | NUR ---
Spoke to Dr Hubbard over the phone, informed of 2x4x5 gas collection on patient's anterior neck per CT scan. verbalized understanding. No new orders at this time.
--- NOTE | 2020-06-07 17:45 | NUR ---
HR 105, BP 155/78, Dopamine drip stopped. Will continue to monitor.
--- NOTE | 2020-06-07 19:30 | NUR ---
Opening Shift Note: Patient is intubated/sedated. ET size 7.0/24 @ lip. Settings: AC rate 14; vT 400; FiO2 30%; PEEP 5. Neuro: pupils 3 mm/brisk/reactive; moves all extremities; opens eyes to voice without sustained contact; + cough/gag; anxious/guarded when aroused but relaxes quickly. Cardio: NSR 90s - ST 100s; SBPs 120s-150s based on patient agitation; no pitting edema; pulses all palpable. Resp: anterior lung sounds coarse throughout; moderate amounts of thick creamy/yellow secretions from ET tube; no secretions from mouth. GI: Right nare NGT to LIS dark green output; BS present; date of last BM unknown. : jamison inserted on 06/01/20 for strict I/O: yellow/clear. Skin: intact; patient is s/p total thyroidectomy with Dr. Hubbard on 06/01/20, anterior neck incision presents with swelling but steri strips over incision are CDI. IVs: LUE midline 18 g inserted on 06/06/20 running Fentanyl @ 175 mcg and 1/2 NS & D5W with 20 meq potassium @ 150 ml/hr. R. hand 22 g IID inserted on 06/05/20. Will continue to round/reposition/perform oral care prn. No plans for CPAP per physician notes.
[2020-06-08] VITALS (103 sets, daily range): BP systolic 80–216; BP diastolic 36–108
[2020-06-08] MEDS: ALBUTEROL SULF 2.5 MG/0.5ML(0.5%) NEB SOLN NEB SCH ×5 (00:27→23:38)
[2020-06-08] MEDS: PROPOFOL 100 ML IV SCH (01:03)
[2020-06-08] MEDS: D5W/SOD CHL 0.45%/KCL 20MEQ 1,000 ML IV SCH ×4 (01:45→23:00)
[2020-06-08 04:12] LABS: Basophils # (auto) 0 10 ^3/uL (0-0.2); Eosinophils # (auto) 0 10 ^3/uL (0-0.8); Hematocrit 27.5 % (36.0-46.0); Hemoglobin 9.4 g/dL (12.2-16.2); Lymphocytes # (auto) 0.3 10 ^3/uL (0.4-5.4); Lymphocytes % (auto) 4.9 % (10.0-50.0); Mean Corpuscular Hemoglobin 29.9 pg (28.0-32.0); Monocytes # (auto) 0.4 10 ^3/uL (0-1.3); Monocytes % (auto) 6.7 % (0.0-12.0); Neutrophils # (auto) 5.8 10 ^3/uL (1.6-8.6); Neutrophils % (auto) 88.4 % (37.0-80.0); Platelet Count (auto) 168 10^3/uL (140-450); Red Blood Cells 3.13 10^6/uL (4.0-5.20); Red Cell Distribution Width 14.8 % (11.8-14.3); White Blood Cell 6.5 10^3/uL (4.4-10.8)
[2020-06-08 04:31] LABS: Potassium 4.4 mmol/L (3.5-5.1)
[2020-06-08 04:39] LABS: Bilirubin, Total 0.3 mg/dL (0.2-1.0); Total Protein 4.7 g/dL (6.4-8.2)
--- NOTE | 2020-06-08 05:00 | NUR ---
Patient bathe/linen change Patient given complete CHG bath. Skin integrity assessed for any changes. Optifoam on sacrum changed. Linens and gown changed. Patient repositioned for comfort.
[2020-06-08] MEDS: fentaNYL Drip 2500mCg/250mlNS 250 ML IV SCH ×2 (05:10→21:30)
[2020-06-08] MEDS: NOREPINEPHRINE 8 MG/250ML KIT 250 ML IV SCH (05:36)
[2020-06-08] MEDS: methylPREDNISolone SOD SUCC 125 MG/2 ML VL IV SCH ×3 (06:00→22:00)
--- NOTE | 2020-06-08 09:00 | NUR ---
PATIENT SEDATION INCREASED DUE TO PATIENT AGITATION. NO PLANS FOR CPAP TODAY. Addendum: 06/08/20 at 0939 by Sully Hunter RN Amended: Links added.
--- NOTE | 2020-06-08 09:10 | NUR ---
DR FISHER VISITS AND EXAMINES PATIENT - ORDERS RECEIVED.
[2020-06-08] MEDS: FAMOTIDINE (10MG/ML) 2ML VL IV SCH (12:34)
[2020-06-08] MEDS: MIDAZOLAM DRIP 50 mg/50mL 50 ML IV SCH (13:30)
--- NOTE | 2020-06-08 13:53 | NUR ---
Nutrition Followup/Consult Notes Pt wt is 64.2 kg Pt was sedated, NPO since 06/01 d/t planning CPAP, however pt sedation has been increased d/t pt agitation, no CPAP trial today per RN. Will continue to monitor PO status, skin status, pertinent labs and weight trends. Will f/u in 2-3 days. Recommendation: If GI tract is preferred route, consider initiating EN nutrition support Osmolite 1.2 @ 50 ml/hr as tolerated, and per MD approval. Est Energy needs BW 62 [id number] kcals (23-25 kcal/kgBW), Est Protein needs: 62-68 gms/day (1.0-1.1 gm/kgBW). Will continue to monitor and reassess prn. LABS: Gluc 206 H, Ca 7.0 L, Alb 2.0 L GI: Last BM unknown per RN doc BS: 14 mod risk. Refer to wound assessment report for full details. PES: 1) Altered nutrition related lab values rt current chronic medical condition aeb hyperglycemia, mod hypoalb 2) Impaired swallowing r.t current medical condition aeb pt`s intubated sedated with order of NPO Comments 1) Advance diet as medically feaisble 2) Consider EN support with Osmolite @ 50 ml/hr per md approval 3) Continue current plan of care
--- NOTE | 2020-06-08 14:30 | NUR ---
VERSED STOPPED DUE TO HR 47-50 AND HR 80-82 - DOPAMINE STARTED - SEE IV SPREAD SHEET.
[2020-06-08] MEDS: CLINDAMYCIN 600MG IV 50 ML IV SCH ×2 (14:43→22:00)
--- NOTE | 2020-06-08 15:30 | NUR ---
DR BAUTISTA NOTIFIED OF NEED FOR PICC LINE DUE TO NEED FOR INCREASED SEDATION AND THEN RESULTANT NEED FOR VASOPRESSORS - ORDERS RECEIVED. DR LOMELI NOTIFIED ALSO OF ABOVE.
[2020-06-08 17:46] LABS: INR 1.14 (0.9-1.15); Partial Thromboplastin Time 24.5 sec (23.0-31.2)
--- NOTE | 2020-06-08 18:16 | NUR ---
RECEIVED PT FROM SALLIE ON VENT V5 WITH SETTINGS MENTIONED ABOVE. VENT PLUGGED INTO RED OUTLET, ALARMS ON AND AUDILE. AMBU BAG AT BEDSIDE. PT INTUBATED WITH A SIZE 7.0 ET TUBE SECURED WITH OSBALDO AT 24CM. ETT MOVED TO RIGHT POSITION, NO LIP BREAKDOWN NOTED. PT BS CLEAR/DIMINISHED, SUCTIONED SCANT THIN WHITE SECRETIONS. PT SKIN WARM AND DRY TO TOUCH. EDEMA NOTED ON EXTREMITIES. PT ON CONT BEDSIDE MONITORING, WILL CONTINUE TO MONITOR.
[2020-06-08 21:42] LABS: INR 1.08 (0.9-1.15)
[2020-06-08] MEDS: DOPamine 1600MCG/ML D5W 250 ML IV SCH (21:48)
[2020-06-09] VITALS (100 sets, daily range): BP systolic 102–219; BP diastolic 42–113
[2020-06-09] MEDS: PROPOFOL 100 ML IV SCH ×2 (01:03→13:54)
[2020-06-09] MEDS ORDERED: hydrALAZINE HCL 20 MG/ML VL ONE (01:48)
[2020-06-09] MEDS: hydrALAZINE HCL 20 MG/ML VL IV PRN (01:59)
[2020-06-09 04:29] LABS: Basophils # (auto) 0 10 ^3/uL (0-0.2); Basophils % (auto) 0.1 % (0.0-2.0); Eosinophils # (auto) 0 10 ^3/uL (0-0.8); Hematocrit 35.3 % (36.0-46.0); Hemoglobin 11.7 g/dL (12.2-16.2); Lymphocytes # (auto) 0.3 10 ^3/uL (0.4-5.4); Lymphocytes % (auto) 2.5 % (10.0-50.0); Mean Corpuscular Hemoglobin 28.9 pg (28.0-32.0); Mean Corpuscular Volume 87.8 fL (80.0-100.0); Monocytes # (auto) 0.4 10 ^3/uL (0-1.3); Monocytes % (auto) 3.3 % (0.0-12.0); Neutrophils # (auto) 11.6 10 ^3/uL (1.6-8.6); Neutrophils % (auto) 94.1 % (37.0-80.0); Platelet Count (auto) 286 10^3/uL (140-450); Red Blood Cells 4.03 10^6/uL (4.0-5.20); Red Cell Distribution Width 14.7 % (11.8-14.3); White Blood Cell 12.3 10^3/uL (4.4-10.8)
[2020-06-09 04:50] LABS: Albumin 2.5 g/dL (3.4-5.0); Calcium 7.9 mg/dL (8.5-10.1); Potassium 4.6 mmol/L (3.5-5.1)
[2020-06-09 04:53] LABS: BUN/Creatinine Ratio 16.5; Bilirubin, Total 0.5 mg/dL (0.2-1.0)
[2020-06-09] MEDS: NOREPINEPHRINE 8 MG/250ML KIT 250 ML IV SCH (05:36)
[2020-06-09] MEDS: methylPREDNISolone SOD SUCC 125 MG/2 ML VL IV SCH ×3 (06:00→22:00)
[2020-06-09] MEDS: CLINDAMYCIN 600MG IV 50 ML IV SCH ×3 (06:00→22:00)
[2020-06-09] MEDS: D5W/SOD CHL 0.45%/KCL 20MEQ 1,000 ML IV SCH ×4 (07:10→20:00)
[2020-06-09] MEDS: ALBUTEROL SULF 2.5 MG/0.5ML(0.5%) NEB SOLN NEB SCH ×3 (07:30→18:03)
[2020-06-09 09:41] LABS: Urine Bacteria FEW /hpf (None Seen); Urine Blood TRACE /uL (Negative); Urine Hyaline Cast FEW /lpf (0 - 2); Urine Mucus FEW (None Seen); Urine Specific Gravity 1.013 (1.001-1.035); Urine WBC 3 /hpf (0 - 5)
--- NOTE | 2020-06-09 10:00 | NUR ---
DR MONTES VISITS - ORDERS RECEIVED.
[2020-06-09] MEDS: FAMOTIDINE (10MG/ML) 2ML VL IV SCH (13:00)
[2020-06-09] MEDS: MIDAZOLAM DRIP 50 mg/50mL 50 ML IV SCH (13:12)
[2020-06-09] MEDS: ENOXAPARIN SOD 40 MG/0.4 ML SYRINGE SC SCH (13:26)
[2020-06-09] MEDS: fentaNYL Drip 2500mCg/250mlNS 250 ML IV SCH (13:34)
[2020-06-09] MEDS ORDERED: TPN PER PHARMACY 0 ML IV SCH (14:30)
--- NOTE | 2020-06-09 15:00 | NUR ---
PICC line placement Patient/Patient significant other educated on need for PICC line placement. All risks and benefits explained and all questions and concerns addressed prior to procedure. Noted past medical history and allergies with no contraindications. INR and Plt counts within acceptable range. 5 fr PICC line inserted via RIGHT BASILIC vein using [employer] US and Tip Location System. Sterile technique with maximum barrier precautions utilized. Blood return obtained from each of TWO lumens and each flushed easily with NS using proper technique. PICC secured with Stat-lock; biodisc and occlusive dressing applied. Stat portable chest x-ray obtained for PICC tip placement. *Baseline Arm Circumference 28CM. INTERNAL LENGTH 36 CM EXTERNAL LENGTH 1 CM PICC lot #[id number]. Note:
[2020-06-09] MEDS ORDERED: LIDOCAINE 1% (LOCAL ANESTH.) PF 5ml SDV ID ONE (15:15)
--- NOTE | 2020-06-09 15:25 | NUR ---
OK to use PICC line Xray completed. OK to use PICC line .
[2020-06-09 15:35] LABS: Magnesium 2.1 mg/dL (1.6-2.6); Phosphorus 1.8 mg/dL (2.5-4.90)
[2020-06-09] MEDS ORDERED: SODIUM PHOSP 40 MEQ in D5W 5% 250 ML IV ONE (16:00)
--- NOTE | 2020-06-09 16:00 | NUR ---
WOUND CARE NOTE: IN TO SEE PATIENT FOR SKIN INTEGRITY AT THIS TIME. PATIENT CONTINUES TO BE INTUBATED, SEDATED. CURRENT CHILANGO SCORE IS 13. PATIENT IS NOTED TO HAVE AN ANTERIOR NECK INCISION THAT IS STERISTRIPPED CLOSED. THERE IS SUBCUTANEOUS EDEMA NOTED, BUT NO DRAINAGE SEEN. PATIENT TURNED ONTO RIGHT SIDE, SO TO VISUALIZE SKIN ON BACK/SACRUM. ALL BONY PROMINENCES ARE PINK AND BLANCHABLE. OPTIFOAM GENTLE SACRAL DRESSING REAPPLIED. PATIENT REPOSITIONED ONTO RIGHT SIDE, REDISTRIBUTING PRESSURE POINTS WITH PILLOWS. SKIN/WOUND CARE PLAN UPDATED. RECOMMEND: CONTINUATION WITH ALL WOUND CARE ORDERS PREVIOUSLY PRESCRIBED BY . WOUND CARE TEAM WILL CONTINUE TO MONITOR.
[2020-06-09] MEDS ORDERED: SODIUM PHOSPHATES 30 MEQ in SODIUM CHL 0.9% 250 ML IV ONE (17:00)
[2020-06-09] MEDS: DOPamine 1600MCG/ML D5W 250 ML IV SCH (19:13)
[2020-06-09] MEDS ORDERED: CLINIMIX PER PHARMACY IV NR (20:00)
[2020-06-09] MEDS: SODIUM CHLOR 0.9% PF (SALINE LOCK) 10ML VIAL/SYR IV SCH (22:00)
[2020-06-10] VITALS (93 sets, daily range): BP systolic 106–216; BP diastolic 37–98
[2020-06-10] MEDS ORDERED: DEXTROSE (50%) 50ML SYRG IV SCH
[2020-06-10] MEDS: ALBUTEROL SULF 2.5 MG/0.5ML(0.5%) NEB SOLN NEB SCH ×4 (00:15→20:41)
[2020-06-10] MEDS: fentaNYL Drip 2500mCg/250mlNS 250 ML IV SCH ×2 (01:37→13:36)
[2020-06-10 04:54] LABS: Basophils # (auto) 0 10 ^3/uL (0-0.2); Basophils % (auto) 0.1 % (0.0-2.0); Eosinophils # (auto) 0 10 ^3/uL (0-0.8); Hematocrit 32.6 % (36.0-46.0); Hemoglobin 10.7 g/dL (12.2-16.2); Lymphocytes # (auto) 0.4 10 ^3/uL (0.4-5.4); Lymphocytes % (auto) 3.5 % (10.0-50.0); Mean Corpuscular Hemoglobin 28.5 pg (28.0-32.0); Mean Corpuscular Hgb Conc. 32.7 g/dL (32.0-36.0); Mean Corpuscular Volume 87.1 fL (80.0-100.0); Monocytes # (auto) 0.6 10 ^3/uL (0-1.3); Monocytes % (auto) 5.3 % (0.0-12.0); Neutrophils # (auto) 10.6 10 ^3/uL (1.6-8.6); Neutrophils % (auto) 91.1 % (37.0-80.0); Platelet Count (auto) 259 10^3/uL (140-450); Red Blood Cells 3.74 10^6/uL (4.0-5.20); Red Cell Distribution Width 14.4 % (11.8-14.3); White Blood Cell 11.6 10^3/uL (4.4-10.8)
[2020-06-10 05:06] LABS: Albumin 2.2 g/dL (3.4-5.0); Calcium 7.3 mg/dL (8.5-10.1); Magnesium 1.9 mg/dL (1.6-2.6); Potassium 4.2 mmol/L (3.5-5.1)
[2020-06-10 05:13] LABS: BUN/Creatinine Ratio 23.5; Bilirubin, Total 0.4 mg/dL (0.2-1.0); Phosphorus 3.1 mg/dL (2.5-4.90); Pre Albumin 17.4 mg/dL (20.0-40.0); Total Protein 5.1 g/dL (6.4-8.2)
[2020-06-10] MEDS: NOREPINEPHRINE 8 MG/250ML KIT 250 ML IV SCH (05:36)
[2020-06-10] MEDS: ACCU-CHEK COMFORT CURVE STRIP VI SCH ×5 (06:00→23:59)
[2020-06-10] MEDS: InsuLIN REG 1unit/0.01ml Soln (100units/ml) SC SCH ×5 (06:00→23:59)
[2020-06-10] MEDS: methylPREDNISolone SOD SUCC 125 MG/2 ML VL IV SCH ×3 (06:00→22:21)
[2020-06-10] MEDS: CLINDAMYCIN 600MG IV 50 ML IV SCH ×3 (06:00→22:21)
[2020-06-10] MEDS ORDERED: cloNIDine HCL 0.1 MG TAB PO PRN (09:45)
--- NOTE | 2020-06-10 09:53 | NUR ---
DR FISHER AT BEDSIDE, DR REYES LEFT UPPER ARM SWELLING ASSESSED. NEW ORDER FOR AWARE OF SBP AND HR AND SEDATION MEDICATION. AWARE SEDATION MEDICATION LOWERS HR. AWARE APRESOLINE ORDERED PRN ON BACK ORDER PER PHARMACIST. NEW ORDER FOR CLONIDINE 0.1MG PO Q8HPRN FOR SBP ABOVE 160. NEW ORDER FOR CT NECK WITHOUT CONTRAST FOR FOLLOW UP ON GAS COLLECTION ON PRIOR CT. NEW ORDER FOR SOLUMEDROL TO BE CHANGED FROM 80 MG TO 40MG Q8H. PRIMARY RN DERIAN AWARE OF ALL NEW ORDERS.
[2020-06-10] MEDS: PROPOFOL 100 ML IV SCH (10:53)
[2020-06-10] MEDS: D5W/SOD CHL 0.45%/KCL 20MEQ 1,000 ML IV SCH ×3 (10:53→20:00)
--- NOTE | 2020-06-10 11:05 | NUR ---
TO CT PER BED ON PORTABLE ACADEMIC SUCCESS COORDINATOR AND VENTILATOR, ACCOMPANIED PER 2 RN'S AND 1 RT.
--- NOTE | 2020-06-10 11:25 | NUR ---
PATIENT RETURNED FROM CT PER BED IN STABLE CONDITION. BP 204/80 - WILL MONITOR. PATIENT RECEIVED CLONIDINE EARLIER. BP HIGH WITH ANY PATIENT CONTACT - STIMULI DECREASED IN ROOM.
[2020-06-10] MEDS: ENOXAPARIN SOD 40 MG/0.4 ML SYRINGE SC SCH (12:15)
[2020-06-10] MEDS: FAMOTIDINE (10MG/ML) 2ML VL IV SCH (12:15)
[2020-06-10] MEDS: SODIUM CHLOR 0.9% PF (SALINE LOCK) 10ML VIAL/SYR IV SCH ×2 (12:16→21:35)
--- NOTE | 2020-06-10 12:34 | NUR ---
CT NECK CALLED TO DR FISHER - STATES TO CALL REPORT TO DR FAROOQ COVERING FOR DR LOMELI. HOME HEALTH OCCUPATIONAL THERAPIST CALLED REPORT TO DR FAROOQ - STATES HE WILL COME IN TO EXAMINES PATIENT.
--- NOTE | 2020-06-10 12:42 | NUR ---
Nutrition Followup/Consult Notes Pt wt is 66.0 kg Pt was not on the floor when rounded this morning. Pt has been NPO since 06/01. Per MD doc, pt to remain intubated d/t collection of gas at surgical site. Noted pt is active to receive TPN. Will continue to monitor PO status, skin status, pertinent labs and weight trends. Will f/u in 2-3 days. Recommendation: If GI tract is preferred route, consider initiating EN nutrition support Osmolite 1.2 @ 50 ml/hr as tolerated, and per MD approval. Est Energy needs BW 62 [id number] kcals (23-25 kcal/kgBW), Est Protein needs: 62-68 gms/day (1.0-1.1 gm/kgBW). Will continue to monitor and reassess prn. LABS: Gluc 185 H, Ca 7.3 L, Alb 2.2 L GI: Pt had 2 BM on 06/08 per RN doc BS: 13 mod risk. Refer to wound assessment report for full details. PES: 1) Altered nutrition related lab values rt current chronic medical condition aeb hyperglycemia, mod hypoalb 2) Impaired swallowing r.t current medical condition aeb pt`s intubated sedated with order of NPO Comments 1) Advance diet as medically feaisble 2) Consider EN support with Osmolite @ 50 ml/hr per md approval 3) Continue current plan of care Addendum: 06/10/20 at [address] Note: Pt is scheduled for TPN @ 45 ml/hr providing 1150 kcals, 50g of protein and 950 NPCs. Pt with inadequate energy and protein intake from PN support as it meets 74-81% of est caloric needs and 74-81% of est protein needs.
[2020-06-10] MEDS: MIDAZOLAM DRIP 50 mg/50mL 50 ML IV SCH (13:12)
[2020-06-10] MEDS: DOPamine 1600MCG/ML D5W 250 ML IV SCH (16:38)
--- NOTE | 2020-06-10 18:30 | NUR ---
DOPPLER LEFT EXTREMITY RESULT, CT NECK RESULT AND TSH LEVEL CALLED TO DR MONTES - NO ADDITIONAL ORDERS RECEIVED.
--- NOTE | 2020-06-10 19:30 | NUR ---
OPENING SHIFT RECEIVED REPORT FROM DAY SHIFT RN. ASSUMED CARE OF PATIENT. PATIENT INTUBATED AND SEDATED WITH NO SIGNS OR SYMPTOMS OF SOB, PAIN OR DISTRESS.SOFT RESTRAINTS IN PLACE - CIRCULATION AND SKIN ASSESSED. RIGHT UPPER ARM PICC AND LEFT UPPER ARM MIDLINE - CLEAN/DRY/INTACT. EPSTEIN HUNG TO GRAVITY. ANTERIOR NECK S/P TOTAL THYROIDECTOMY - CLEAN/DRY/INTACT. SEDATION: FENTANYL 200MCG/HR PROPOFOL - 10MCG/KG/MIN D5W 1/2NS 20 MEQ K - 80ML/HR REPOSITIONED FOR COMFORT. BED IN LOWEST POSITION, SIDE RAILS UP X2. WILL CONTINUE TO MONITOR.
[2020-06-10] MEDS ORDERED: TPN PER PHARMACY IV NR ×10 (20:00)
[2020-06-10] MEDS: hydrALAZINE HCL 20 MG/ML VL IV PRN (22:28)
[2020-06-11] VITALS (96 sets, daily range): BP systolic 83–200; BP diastolic 34–83
[2020-06-11] MEDS: ALBUTEROL SULF 2.5 MG/0.5ML(0.5%) NEB SOLN NEB SCH ×4 (00:10→18:36)
[2020-06-11] MEDS: fentaNYL Drip 2500mCg/250mlNS 250 ML IV SCH ×2 (00:51→14:17)
--- NOTE | 2020-06-11 03:50 | NUR ---
MORNING CARE PERFORMED MORNING CARE WITH CHG WIPES AND WASH CLOTHS TO THE FACE. PARTIAL LINEN CHANGE AND GOWN CHANGED. ORAL AND EPSTEIN CARE PERFORMED AT THIS TIME. REPOSITIONED FOR COMFORT. SKIN REASSESSED AT THIS TIME. BED IN LOWEST POSITION, SIDE RAILS UPX2. WILL CONTINUE TO MONITOR.
[2020-06-11 04:33] LABS: Albumin 1.7 g/dL (3.4-5.0); Calcium 7.2 mg/dL (8.5-10.1); Potassium 4.3 mmol/L (3.5-5.1)
[2020-06-11 04:34] LABS: BUN/Creatinine Ratio 31.7
[2020-06-11 04:37] LABS: Bilirubin, Total 0.3 mg/dL (0.2-1.0); Total Protein 4.4 g/dL (6.4-8.2)
[2020-06-11 04:43] LABS: Magnesium 1.9 mg/dL (1.6-2.6)
[2020-06-11 04:46] LABS: Phosphorus 2.6 mg/dL (2.5-4.90)
--- NOTE | 2020-06-11 05:00 | NUR ---
RECTAL TEMPERATURE - 100.0 DEGREES FAHRENHEIT COOLING MEASURES INITIATED
[2020-06-11] MEDS: NOREPINEPHRINE 8 MG/250ML KIT 250 ML IV SCH (05:36)
[2020-06-11] MEDS ORDERED: SODIUM CHLORIDE 0.9 % NEB SOLN 3ML NEB ONE ×2 (05:49→11:46)
[2020-06-11] MEDS: CLINDAMYCIN 600MG IV 50 ML IV SCH ×3 (05:50→21:54)
[2020-06-11] MEDS: methylPREDNISolone SOD SUCC 125 MG/2 ML VL IV SCH ×3 (05:50→21:54)
[2020-06-11] MEDS: InsuLIN REG 1unit/0.01ml Soln (100units/ml) SC SCH ×3 (06:14→18:12)
[2020-06-11] MEDS: ACCU-CHEK COMFORT CURVE STRIP VI SCH ×3 (06:14→17:05)
--- NOTE | 2020-06-11 07:25 | NUR ---
END OF SHIFT REPORT GIVEN TO DAY SHIFT RN. CARE ENDORSED.
--- NOTE | 2020-06-11 09:00 | NUR ---
GASTRIC RESIDUAL RIGHT NG PLACEMENT VERIFIED VIA AUSCULTATION AND ASPIRATION. TOTAL OF 50CC OF THIN BROWN SECRETIONS NOTED. NG REMAINS TO LIS. WILL CONTINUE TO MONITOR. WILL ASSESS WITH MD IF WOULD LIKE TO CONSIDER STARING TUBE FEEDINGS. ABD ROUND. SOFT, NON DISTENDED.
[2020-06-11] MEDS ORDERED: D5W/SOD CHL 0.45%/KCL 20MEQ 1,000 ML IV SCH (10:00)
[2020-06-11] MEDS: ENOXAPARIN SOD 40 MG/0.4 ML SYRINGE SC SCH (10:01)
[2020-06-11] MEDS: SODIUM CHLOR 0.9% PF (SALINE LOCK) 10ML VIAL/SYR IV SCH ×2 (10:01→21:54)
[2020-06-11] MEDS: D5W/SOD CHL 0.45%/KCL 20MEQ 1,000 ML IV SCH ×3 (10:01→19:40)
[2020-06-11] MEDS: FAMOTIDINE (10MG/ML) 2ML VL IV SCH (10:01)
[2020-06-11] MEDS: PROPOFOL 100 ML IV SCH (10:01)
--- NOTE | 2020-06-11 10:30 | NUR ---
AT BEDSIDE DR. JEROME UPDATED ON PATIENTS STATUS. MD AWARE OF EDEMA AND REVIEWED US OF UPPER EXT. PER MD OK TO CONTINUE INFUSING IVF TO LINE US REVEALED SUPERFICIAL DVT. PER MD PICC LINE TO BE CHANGED TO TRIPLE LUMEN AND ONCE CHANGED OUT MIDLINE TO BE REMOVED. FERTILIZING MACHINE OPERATOR CALLED- NO PICC LINE NURSE ANCIENT ART CURATOR FOR TODAY OR TOMORROW. WILL FOLLOW UP ON SATURDAY MORNING. SEE ORDERS.
--- NOTE | 2020-06-11 12:28 | NUR ---
BRADYCARDIA PATIENT NOTED TO BE MODERATELY SEDATED WITH HR LOW 48 . WHEN SEDATION DECREASED FOR A SHORT AMOUNT OF TIME (SEE IV SPREADSHEET) PATIENT BECAME LIGHTLY SEDATED, HYPERTENSION 180'S/70'S AND ASYNCHRONOUS WITH VENTILATOR. SEDATION INCREASED FOR COMFORT. BILATERAL SOFT RESTRAINTS REMAINS IN PLACE WITH SKIN INTACT AND TISSUE PERFUSION WNL PATIENT IS A DIFFICULT REINTUBATION. SEE MD NOTES.
--- NOTE | 2020-06-11 13:00 | NUR ---
Precast Concrete Ironworker MD AT BEDSIDE. UPDATED ON PATIENTS STATUS. PER DR. FISHER AWAITING DR. LOMELI TO RETURN ON SATURDAY AT THIS TIME. PER DR. FAROOQ (COVERING MD) NO NEW ORDERS.
[2020-06-11] MEDS: MIDAZOLAM DRIP 50 mg/50mL 50 ML IV SCH (13:12)
--- NOTE | 2020-06-11 13:12 | NUR ---
Family updated on pt status Family of CHAICATHERINE updated on patient's status and condition. All questions and concerns addressed. Brother, Moreno verbalized understanding. Moreno reminded of need for restraints as it is for patients safety due to difficulty reintubation and patient lightly-moderately sedated. Brother verbalized understanding. Questions and concerns addressed.
[2020-06-11] MEDS: DOPamine 1600MCG/ML D5W 250 ML IV SCH (14:03)
--- NOTE | 2020-06-11 14:23 | NUR ---
HYPERTENSION PATIENTS BP 167/65. PRN HYDRALAZINE IN BACK ORDER. CLONIDINE GIVEN ORDERED PRN VIA NG.
--- NOTE | 2020-06-11 14:24 | NUR ---
leak test average 286cc
--- NOTE | 2020-06-11 14:29 | NUR ---
Cooling Measures applied. Patient currently has temp of 100.2 , cooling measures in place.
[2020-06-11] MEDS ORDERED: Osmolite 1.2 Cal One Liter GT SCH (14:30)
--- NOTE | 2020-06-11 14:32 | NUR ---
NO GASTRIC RESIDUAL NOTED. Addendum: 06/11/20 at 1433 by Regina Trent RN MEDICATION GIVEN VIA NG. PER MD IF NO GASTRIC SECRETIONS NOTED. OK TO START ON TUBE FEEDINGS. ORDER IN PLACE.
--- NOTE | 2020-06-11 17:00 | NUR ---
SQ emphysema Subcutaneous emphysema to anterior neck noted to be extending slightly to left lateral neck. Area remains soft to touch. Steri strips to anterior neck remain intact. Will continue to monitor.
[2020-06-11] MEDS ORDERED: TPN PER PHARMACY IV NR ×11 (20:00)
[2020-06-12] VITALS (97 sets, daily range): BP systolic 48–187; BP diastolic 30–74
[2020-06-12] MEDS: ALBUTEROL SULF 2.5 MG/0.5ML(0.5%) NEB SOLN NEB SCH ×4 (00:15→18:37)
[2020-06-12] MEDS: InsuLIN REG 1unit/0.01ml Soln (100units/ml) SC SCH ×4 (00:30→18:04)
[2020-06-12] MEDS: fentaNYL Drip 2500mCg/250mlNS 250 ML IV SCH ×2 (02:00→14:15)
[2020-06-12] MEDS: PROPOFOL 100 ML IV SCH ×2 (03:00→18:06)
[2020-06-12 04:12] LABS: Basophils # (auto) 0 10 ^3/uL (0-0.2); Basophils % (auto) 0.1 % (0.0-2.0); Eosinophils # (auto) 0 10 ^3/uL (0-0.8); Hematocrit 35.4 % (36.0-46.0); Hemoglobin 11.7 g/dL (12.2-16.2); Lymphocytes # (auto) 0.3 10 ^3/uL (0.4-5.4); Lymphocytes % (auto) 1.3 % (10.0-50.0); Mean Corpuscular Hemoglobin 28.9 pg (28.0-32.0); Mean Corpuscular Hgb Conc. 33.1 g/dL (32.0-36.0); Mean Corpuscular Volume 87.4 fL (80.0-100.0); Monocytes # (auto) 1.1 10 ^3/uL (0-1.3); Monocytes % (auto) 4.8 % (0.0-12.0); Neutrophils # (auto) 21.5 10 ^3/uL (1.6-8.6); Neutrophils % (auto) 93.8 % (37.0-80.0); Platelet Count (auto) 282 10^3/uL (140-450); Red Blood Cells 4.05 10^6/uL (4.0-5.20); Red Cell Distribution Width 15.1 % (11.8-14.3)
[2020-06-12 04:28] LABS: Potassium 4.3 mmol/L (3.5-5.1)
[2020-06-12 04:37] LABS: Albumin 2.1 g/dL (3.4-5.0); Bilirubin, Total 0.3 mg/dL (0.2-1.0); Calcium 7.2 mg/dL (8.5-10.1); Magnesium 2.3 mg/dL (1.6-2.6); Phosphorus 2.8 mg/dL (2.5-4.90); Total Protein 5.3 g/dL (6.4-8.2)
[2020-06-12] MEDS: NOREPINEPHRINE 8 MG/250ML KIT 250 ML IV SCH (05:36)
[2020-06-12] MEDS ORDERED: SODIUM CHLORIDE 0.9 % NEB SOLN 3ML NEB ONE ×2 (05:55→13:39)
[2020-06-12] MEDS: ACCU-CHEK COMFORT CURVE STRIP VI SCH ×4 (06:11→18:01)
[2020-06-12] MEDS: methylPREDNISolone SOD SUCC 125 MG/2 ML VL IV SCH ×3 (06:11→21:38)
[2020-06-12] MEDS: CLINDAMYCIN 600MG IV 50 ML IV SCH (06:12)
--- NOTE | 2020-06-12 07:24 | NUR ---
END OF SHIFT REPORT GIVEN TO DAY SHIFT RN.
[2020-06-12] MEDS ORDERED: CEFTRIAXONE SODIUM 2 GM in D5W 5% 50 ML IV SCH ×2 (07:45→10:00)
--- NOTE | 2020-06-12 09:05 | NUR ---
DR FAROOQ NOTIFIED OF INCREASED NECK SWELLING - STATES WILL COME SEE PATIENT.
--- NOTE | 2020-06-12 09:15 | NUR ---
DR FAROOQ PHONES - ORDER RECEIVED FOR CO-AGS - ORDER ENTERED.
--- NOTE | 2020-06-12 09:45 | NUR ---
DR JEROME VISITS AND EXAMINES PATIENT- ORDERS RECEIVED.
[2020-06-12 09:53] LABS: INR 1.1 (0.9-1.15)
[2020-06-12] MEDS: ENOXAPARIN SOD 40 MG/0.4 ML SYRINGE SC SCH (10:00)
[2020-06-12] MEDS: SODIUM CHLOR 0.9% PF (SALINE LOCK) 10ML VIAL/SYR IV SCH ×2 (10:09→21:38)
--- NOTE | 2020-06-12 10:26 | NUR ---
DR FAROOQ NOTIFIED OF PTT, PT/INR - ORDER RECEIVED.
[2020-06-12] MEDS: FAMOTIDINE (10MG/ML) 2ML VL IV SCH (11:00)
[2020-06-12] MEDS: DOPamine 1600MCG/ML D5W 250 ML IV SCH (11:06)
--- NOTE | 2020-06-12 11:10 | NUR ---
Nutrition Followup/Consult Notes Pt wt is 72.2 kg Pt intubated and sedated per MD note with propofol running at 3.738 ml/hr providing 99 kcal from lipids. Pt is s/p thyroidectomy per MD note. Pt with TPN at 50 ml/hr providing 1190 kcal and 60g protein, 950 NPC. This provides 77-83% of energy needs and 88-97% of protein needs. Pt has Osmolite 1.2 ordered at 50 ml/hr Recommendation: If GI tract is preferred route, consider initiating EN nutrition support Osmolite 1.2 @ 50 ml/hr as tolerated, and per MD approval. Est Energy needs BW 62 [id number] kcals (23-25 kcal/kgBW), Est Protein needs: 62-68 gms/day (1.0-1.1 gm/kgBW). Will continue to monitor and reassess prn. LABS: BUN 22H, GLUC 197H, Alb 2.1L, Ca 7.2L GI: Pt had 2 BM on 06/09 per RN doc BS: 11 high risk. Refer to wound assessment report for full details. PES: 1) Altered nutrition related lab values rt current chronic medical condition aeb hyperglycemia, mod hypoalb 2) Impaired swallowing r.t current medical condition aeb pt`s intubated sedated with order of NPO Comments 1) Continue TPN to meet >75% of needs until diet can be advanced or transition to TF 2) Advance diet as medically feasible 3) Consider EN support with Osmolite @ 50 ml/hr per md approval 4) Continue current plan of care f/u high 2-3 days
--- NOTE | 2020-06-12 11:14 | NUR ---
DR FISHER VISITS EXAMINES PATIENT- ORDERS RECEIVED.
[2020-06-12] MEDS: D5W/SOD CHL 0.45%/KCL 20MEQ 1,000 ML IV SCH (12:40)
[2020-06-12] MEDS: MIDAZOLAM DRIP 50 mg/50mL 50 ML IV SCH (13:12)
--- NOTE | 2020-06-12 13:45 | NUR ---
DR FAROOQ VISITS AND EXAMINES PATIENT - NO NEW ORDERS RECEIVED. DR FAROOQ STATES NO INTERVENTION NEEDED AT THIS TIME AND MONITORING OF THE SWELLING SHOULD CONTINUE
[2020-06-12] MEDS: MEROPENEM 1GM IVPB 100 ML IV SCH ×2 (14:52→21:38)
--- NOTE | 2020-06-12 15:20 | NUR ---
DR JEROME NOTIFIED PER REQUEST OF DR FAROOQ'S FINDINGS WITH EXAMINATION OF SWELLING - STATES HE HAS SPOKE WITH DR LOMELI AND THAT PATIENT MAY NEED TRANSFER TO HIGHER LEVEL OF CARE - NO ORDERS RECEIVED AT PRESENT.
[2020-06-12] MEDS ORDERED: TPN PER PHARMACY IV NR ×10 (19:00)
--- NOTE | 2020-06-12 20:00 | NUR ---
Restraints released. Circulation checked. ROM performed.
[2020-06-13] VITALS (69 sets, daily range): BP systolic 97–181; BP diastolic 30–91
--- NOTE | 2020-06-13 | NUR ---
Restraints released. ROM performed. Circulation checked.
[2020-06-13] MEDS: InsuLIN REG 1unit/0.01ml Soln (100units/ml) SC SCH ×5 (00:04→23:13)
[2020-06-13] MEDS: ALBUTEROL SULF 2.5 MG/0.5ML(0.5%) NEB SOLN NEB SCH ×4 (00:25→18:18)
[2020-06-13] MEDS: fentaNYL Drip 2500mCg/250mlNS 250 ML IV SCH ×2 (02:07→15:20)
--- NOTE | 2020-06-13 04:00 | NUR ---
Restraints released. ROM performed. Circulation checked.
[2020-06-13] MEDS: PROPOFOL 100 ML IV SCH ×2 (04:18→18:50)
[2020-06-13 04:53] LABS: Basophils # (auto) 0 10 ^3/uL (0-0.2); Basophils % (auto) 0.1 % (0.0-2.0); Eosinophils # (auto) 0 10 ^3/uL (0-0.8); Hematocrit 29.2 % (36.0-46.0); Hemoglobin 9.6 g/dL (12.2-16.2); Lymphocytes # (auto) 0.2 10 ^3/uL (0.4-5.4); Lymphocytes % (auto) 1.4 % (10.0-50.0); Mean Corpuscular Hgb Conc. 32.9 g/dL (32.0-36.0); Mean Corpuscular Volume 88.3 fL (80.0-100.0); Monocytes # (auto) 0.6 10 ^3/uL (0-1.3); Monocytes % (auto) 4.2 % (0.0-12.0); Neutrophils # (auto) 14.1 10 ^3/uL (1.6-8.6); Neutrophils % (auto) 94.3 % (37.0-80.0); Platelet Count (auto) 183 10^3/uL (140-450); Red Blood Cells 3.31 10^6/uL (4.0-5.20); White Blood Cell 14.9 10^3/uL (4.4-10.8)
[2020-06-13 05:11] LABS: Albumin 1.5 g/dL (3.4-5.0); Calcium 6.6 mg/dL (8.5-10.1); Potassium 4.4 mmol/L (3.5-5.1)
[2020-06-13 05:15] LABS: BUN/Creatinine Ratio 44.8; Bilirubin, Total 0.2 mg/dL (0.2-1.0)
[2020-06-13 05:20] LABS: Magnesium 2.4 mg/dL (1.6-2.6); Phosphorus 2.9 mg/dL (2.5-4.90)
[2020-06-13] MEDS: ACCU-CHEK COMFORT CURVE STRIP VI SCH ×5 (05:45→23:11)
[2020-06-13] MEDS: MEROPENEM 1GM IVPB 100 ML IV SCH ×3 (05:45→21:08)
[2020-06-13] MEDS: D5W/SOD CHL 0.45%/KCL 20MEQ 1,000 ML IV SCH (05:45)
[2020-06-13] MEDS: methylPREDNISolone SOD SUCC 125 MG/2 ML VL IV SCH ×3 (05:45→21:09)
--- NOTE | 2020-06-13 06:24 | NUR ---
Pt not absorbing tube feed as expected. At start of shift tube feed appeared to come from R-nare. Cleaned pt up. Advanced tube and auscultated and checked residual for placement. Tube feed appeared to run fine until this AM @0600. Noted tube feed coming from pt's mouth. Turned tube feed off. Suctioned and checked residuals. No respiratory distress observed. Total of 228mls infused. 100mls residual.
[2020-06-13] MEDS ORDERED: FUROSEMIDE 40 MG/4 ML VIAL IV ONE (07:45)
--- NOTE | 2020-06-13 08:00 | NUR ---
PATIENT NOTED TO HAVE WHAT APPEARED TO BE SMALL AMT BROWN EMESIS ORALLY - ORAL CARE GIVEN. TF REMAINS OFF AT PRESENT - WILL INFORM MD.
--- NOTE | 2020-06-13 08:30 | NUR ---
DR FISHER VISITS AND EXAMINES PATIENT ORDERS RECEIVED.
[2020-06-13] MEDS: DOPamine 1600MCG/ML D5W 250 ML IV SCH (08:53)
--- NOTE | 2020-06-13 09:00 | NUR ---
DR MONTES VISITS AND EXAMINES PATIENT - SIGNS TRANSFER ORDERS, OTHER ORDERS RECEIVED.
[2020-06-13 09:12] LABS: INR 1.04 (0.9-1.15); Partial Thromboplastin Time 23.7 sec (23.0-31.2)
--- NOTE | 2020-06-13 09:35 | NUR ---
CONSENT RECEIVED FOR REPLACEMENT OF PICC LINE TO TLC INSTEAD OF DOUBLE LUMEN - WITNESSED PER ANOTHER RN
[2020-06-13] MEDS: NOREPINEPHRINE 8 MG/250ML KIT 250 ML IV SCH (10:01)
[2020-06-13] MEDS: SODIUM CHLOR 0.9% PF (SALINE LOCK) 10ML VIAL/SYR IV SCH ×2 (10:02→21:09)
[2020-06-13] MEDS: ENOXAPARIN SOD 40 MG/0.4 ML SYRINGE SC SCH (10:05)
[2020-06-13] MEDS: FAMOTIDINE (10MG/ML) 2ML VL IV SCH (10:06)
--- NOTE | 2020-06-13 11:35 | NUR ---
COVID APARNA ANTIGEN TEST OBTAINED AND WALKED TO LAB.
[2020-06-13] MEDS: MIDAZOLAM DRIP 50 mg/50mL 50 ML IV SCH (13:12)
--- NOTE | 2020-06-13 14:43 | NUR ---
PICC line replacement Patient significant other educated on need for PICC line replacement. All risks and benefits explained and all questions and concerns addressed prior to procedure. Noted past medical history and allergies with no contraindications. INR and Plt counts within acceptable range. 5 fr PICC line exchanged over guidewire with existing double lumen PICC line. Inserted via right brachial vein using [employer] US and Tip Location System. Sterile technique with maximum barrier precautions utilized. Blood return obtained from each of the 3 lumens and each flushed easily with NS using proper technique. PICC secured with Stat-lock; biodisc and occlusive dressing applied. Stat portable chest x-ray obtained for PICC tip placement. *Baseline Arm Circumference 28 cm. Internal length 36 cm. External length 0 cm. PICC lot # [id number] Note: D/C'd double lumen PICC line in tact at 37 cm in length.
[2020-06-13] MEDS ORDERED: LIDOCAINE 1% (LOCAL ANESTH.) PF 5ml SDV ID ONE (14:45)
--- NOTE | 2020-06-13 15:01 | NUR ---
Okay to use PICC line Xray completed. Okay to use PICC line. Sully ABDULLAHI notified.
--- NOTE | 2020-06-13 15:45 | NUR ---
PATIENT'S BROTHER LIVE CALLED - RECEIVED CONSENT FOR PATIENT TO BE TRANSFERRED - TO HIGHER LEVEL OF CARE WHEN ICU BED IS AVAILABLE -WITNESSED PER ANOTHER RN
--- NOTE | 2020-06-13 16:45 | NUR ---
PCR COVID TEST OBTAINED AND WALKED TO LAB
[2020-06-13] MEDS ORDERED: TPN PER PHARMACY IV NR ×11 (20:00)
--- NOTE | 2020-06-13 20:00 | NUR ---
Restraints released for circulation check and ROM.
[2020-06-14] VITALS (16 sets, daily range): BP systolic 93–173; BP diastolic 32–70
--- NOTE | 2020-06-14 | NUR ---
Restraints released. Circulation checked. ROM performed.
[2020-06-14] MEDS: ALBUTEROL SULF 2.5 MG/0.5ML(0.5%) NEB SOLN NEB SCH ×5 (00:03→23:01)
[2020-06-14] MEDS: fentaNYL Drip 2500mCg/250mlNS 250 ML IV SCH (03:24)
--- NOTE | 2020-06-14 04:00 | NUR ---
Restraints released. Circulation checked. ROM performed.
[2020-06-14] MEDS: PROPOFOL 100 ML IV SCH ×2 (04:22→13:26)
[2020-06-14 04:50] LABS: Basophils # (auto) 0 10 ^3/uL (0-0.2); Basophils % (auto) 0.1 % (0.0-2.0); Eosinophils # (auto) 0 10 ^3/uL (0-0.8); Hematocrit 25.8 % (36.0-46.0); Hemoglobin 8.6 g/dL (12.2-16.2); Lymphocytes # (auto) 0.3 10 ^3/uL (0.4-5.4); Mean Corpuscular Hemoglobin 29.1 pg (28.0-32.0); Mean Corpuscular Hgb Conc. 33.4 g/dL (32.0-36.0); Mean Corpuscular Volume 87.1 fL (80.0-100.0); Monocytes # (auto) 0.4 10 ^3/uL (0-1.3); Monocytes % (auto) 4.5 % (0.0-12.0); Neutrophils # (auto) 9.1 10 ^3/uL (1.6-8.6); Neutrophils % (auto) 92.4 % (37.0-80.0); Platelet Count (auto) 166 10^3/uL (140-450); Red Blood Cells 2.97 10^6/uL (4.0-5.20); White Blood Cell 9.9 10^3/uL (4.4-10.8)
[2020-06-14 05:05] LABS: Albumin 1.4 g/dL (3.4-5.0); Calcium 6.5 mg/dL (8.5-10.1); Magnesium 2.3 mg/dL (1.6-2.6); Potassium 3.9 mmol/L (3.5-5.1)
[2020-06-14 05:09] LABS: BUN/Creatinine Ratio 58.3; Bilirubin, Total 0.3 mg/dL (0.2-1.0); Phosphorus 2.7 mg/dL (2.5-4.90); Total Protein 3.6 g/dL (6.4-8.2)
[2020-06-14] MEDS: MEROPENEM 1GM IVPB 100 ML IV SCH ×3 (05:54→21:21)
[2020-06-14] MEDS: ACCU-CHEK COMFORT CURVE STRIP VI SCH ×4 (05:54→23:42)
[2020-06-14] MEDS: methylPREDNISolone SOD SUCC 125 MG/2 ML VL IV SCH ×3 (05:54→21:20)
[2020-06-14] MEDS: InsuLIN REG 1unit/0.01ml Soln (100units/ml) SC SCH ×4 (06:26→23:42)
--- NOTE | 2020-06-14 07:32 | NUR ---
@[id number] Reji from [facility] called and requested report of pt to be transferred.
--- NOTE | 2020-06-14 07:33 | NUR ---
Pt experiencing thick brownish secretions at end of shift. Pt not on tube feed anymore. Will continue to monitor.
--- NOTE | 2020-06-14 09:17 | NUR ---
DR FISHER VISITS AND EXAMINES PATIENT - ORDERS RECEIVED
[2020-06-14] MEDS: NOREPINEPHRINE 8 MG/250ML KIT 250 ML IV SCH (09:25)
[2020-06-14] MEDS: DOPamine 1600MCG/ML D5W 250 ML IV SCH (09:25)
[2020-06-14] MEDS: FAMOTIDINE (10MG/ML) 2ML VL IV SCH (09:42)
[2020-06-14] MEDS: SODIUM CHLOR 0.9% PF (SALINE LOCK) 10ML VIAL/SYR IV SCH ×2 (09:42→21:20)
[2020-06-14] MEDS: ENOXAPARIN SOD 40 MG/0.4 ML SYRINGE SC SCH (09:57)
[2020-06-14] MEDS ORDERED: CALCIUM GLUC 4.65meq/50ml D5AE 50 ML IV ONE (10:00)
--- NOTE | 2020-06-14 11:00 | NUR ---
DR LOMELI VISITS AND EXAMINES PATIENT - ASPIRATED 20 ML AIR FROM SURGICAL SITE THEN PALPATED AND APPLIED PRESSURE TO SITE WITH VENTED NEEDLE IN PLACE TO VENT EDEMATOUS AREA - PATIENT TOLERATED WELL.
--- NOTE | 2020-06-14 12:20 | NUR ---
Nutrition Followup Notes Wt: 77.4 kg Pt intubated and sedated per MD note with propofol running at 5.233 ml/hr providing 138 kcal from lipids. Pt is s/p thyroidectomy per MD note. Pt with TPN at 52 ml/hr providing 1180 kcal and 70g protein, 900 NPC. This provides 75-81% of energy needs and 90-99% of protein needs. Est Energy needs BW 62 [id number] kcals (23-25 kcal/kgBW), Est Protein needs: 62-68 gms/day (1.0-1.1 gm/kgBW). Will continue to monitor and reassess prn. LABS: BUN 28 H, GLU 186 H ALB 1.4 L GI: Pt had 2 BM on 06/09 per RN doc BS: 11 high risk. Refer to wound assessment report for full details. PES: 1) Altered nutrition related lab values rt current chronic medical condition aeb hyperglycemia, mod hypoalb 2) Impaired swallowing r.t current medical condition aeb pt`s intubated sedated with order of NPO Comments 1) Continue TPN to meet >75% of needs until diet can be advanced or transition to TF 2) Advance diet as medically feasible 3) Consider EN support with Osmolite @ 50 ml/hr per md approval 4) Continue current plan of care
[2020-06-14] MEDS: MIDAZOLAM DRIP 50 mg/50mL 50 ML IV SCH (13:12)
[2020-06-14] MEDS: D5W/SOD CHL 0.45%/KCL 20MEQ 1,000 ML IV SCH ×2 (13:30→14:40)
--- NOTE | 2020-06-14 16:20 | NUR ---
FIO2 INCREASED TO 100% TO MAINTAIN O2 SAT >92% Addendum: 06/14/20 at 1639 by Libra OSBORNE PLEASE IGNORE NOTE IT WAS DONE BY MISTAKE.
[2020-06-14] MEDS ORDERED: TPN PER PHARMACY IV NR ×10 (20:00)
--- NOTE | 2020-06-14 20:00 | NUR ---
Restraints released, circulation checked and ROM performed
[2020-06-15] VITALS (50 sets, daily range): BP systolic 100–259; BP diastolic 38–134
--- NOTE | 2020-06-15 | NUR ---
Restraints released. Circulation intact. ROM performed.
[2020-06-15] MEDS: DOPamine 1600MCG/ML D5W 250 ML IV SCH (03:43)
--- NOTE | 2020-06-15 04:00 | NUR ---
Restraints released. Circulation checked and intact. ROM performed.
[2020-06-15 04:33] LABS: Basophils # (auto) 0 10 ^3/uL (0-0.2); Eosinophils # (auto) 0 10 ^3/uL (0-0.8); Hemoglobin 9.3 g/dL (12.2-16.2); Lymphocytes # (auto) 0.1 10 ^3/uL (0.4-5.4); Lymphocytes % (auto) 1.3 % (10.0-50.0); Mean Corpuscular Hemoglobin 29.2 pg (28.0-32.0); Mean Corpuscular Hgb Conc. 33.2 g/dL (32.0-36.0); Mean Corpuscular Volume 87.8 fL (80.0-100.0); Monocytes # (auto) 0.4 10 ^3/uL (0-1.3); Monocytes % (auto) 3.4 % (0.0-12.0); Neutrophils # (auto) 11.1 10 ^3/uL (1.6-8.6); Neutrophils % (auto) 95.3 % (37.0-80.0); Platelet Count (auto) 187 10^3/uL (140-450); Red Blood Cells 3.19 10^6/uL (4.0-5.20); Red Cell Distribution Width 15.1 % (11.8-14.3); White Blood Cell 11.7 10^3/uL (4.4-10.8)
[2020-06-15] MEDS: PROPOFOL 100 ML IV SCH ×2 (04:37→14:42)
[2020-06-15 04:54] LABS: Albumin 1.6 g/dL (3.4-5.0); Calcium 6.7 mg/dL (8.5-10.1); Potassium 4.1 mmol/L (3.5-5.1)
[2020-06-15 04:59] LABS: BUN/Creatinine Ratio 52.6; Bilirubin, Total 0.3 mg/dL (0.2-1.0)
[2020-06-15 05:21] LABS: Magnesium 2.3 mg/dL (1.6-2.6); Phosphorus 2.7 mg/dL (2.5-4.90)
[2020-06-15] MEDS: NOREPINEPHRINE 8 MG/250ML KIT 250 ML IV SCH (05:36)
[2020-06-15] MEDS: MEROPENEM 1GM IVPB 100 ML IV SCH ×2 (05:48→14:02)
[2020-06-15] MEDS: methylPREDNISolone SOD SUCC 125 MG/2 ML VL IV SCH ×2 (05:48→14:11)
[2020-06-15] MEDS: ACCU-CHEK COMFORT CURVE STRIP VI SCH ×2 (06:08→12:46)
[2020-06-15] MEDS: InsuLIN REG 1unit/0.01ml Soln (100units/ml) SC SCH ×2 (06:08→12:41)
[2020-06-15] MEDS: ALBUTEROL SULF 2.5 MG/0.5ML(0.5%) NEB SOLN NEB SCH ×3 (06:25→18:14)
[2020-06-15] MEDS: D5W/SOD CHL 0.45%/KCL 20MEQ 1,000 ML IV SCH ×2 (07:20→14:02)
--- NOTE | 2020-06-15 08:00 | NUR ---
AM ASSESSMENT COMPLETED. REMAINS INTUBATED/ SEDATED, AWAITING FOR A COVID 19 RESULT TO GET TRANSFERRED TO HIGHER LEVEL OF CARE, S/P THYROIDECTOMY. PT TENDS TO HAVE HYPERTENSION WHEN SEDATION RUNS OUT. ONCE RE-SEDATED BP IS OKAY. SEE IV FLOW SHEET. IV GTTS AND MONITOR ALARMS REVIEWED. ORAL CARE PROVIDED AND REPOSITIONED FOR COMFORT. PT HAS GENERALIZED EDEMA TO BOTH UPPER & LOWER EXTREMITIES. SKIN IS INTACT OTHER THAN THYROIDECTOMY SURGICAL SITE.
[2020-06-15] MEDS: fentaNYL Drip 2500mCg/250mlNS 250 ML IV SCH (08:16)
[2020-06-15] MEDS ORDERED: CALCIUM GLUC 4.65meq/50ml D5AE 50 ML IV ONE (09:00)
[2020-06-15] MEDS: ENOXAPARIN SOD 40 MG/0.4 ML SYRINGE SC SCH (10:13)
[2020-06-15] MEDS: FAMOTIDINE (10MG/ML) 2ML VL IV SCH (10:13)
[2020-06-15] MEDS: SODIUM CHLOR 0.9% PF (SALINE LOCK) 10ML VIAL/SYR IV SCH (10:14)
--- NOTE | 2020-06-15 12:00 | NUR ---
DR. MCINTYRE ROUNDED ON PT. UPDATED ON PT'S CONDITION. TOOK PT'S NOK TELEPHONE # TO CALL AND UPDATE THE ON PT'S CONDITION AND TO DISCUSS POC.
[2020-06-15] MEDS: MIDAZOLAM DRIP 50 mg/50mL 50 ML IV SCH (13:12)
--- NOTE | 2020-06-15 13:49 | NUR ---
Spoke with Jodi TORRES at [facility] and stated they are trying to transfer the patient to [facility], waiting for MD to MD review. They are handling all of the arrangement for the transfer.
--- NOTE | 2020-06-15 15:15 | NUR ---
I RECEIVED A PHONE CALL FROM PT'S BROTHER LIVE, STATING THAT HE HAS SPOKEN TO HIS FAMILY AND THEY HAVE DECIDED NOT TO TRANSFER PT OUT AND THAT THEY WANT PT TO BE PLACED ON HOSPICE CARE, THEY WANT ME TO CALL DR. MCINTYRE AND TO UPDATE THEM ON THEIR DECISION. I WAS ABOUT TO PAGED DR. MCINTYRE WHEN THE PHONE RANG AND HE WAS ABOUT TO INFORM ME ABOUT THE FAMILY HAVING TO MAKE A DECISION. I INFORM HIM THAT THEY ALREADY HAD. HE SAID HE'LL NOTIFY DR. PACHECO, THE MUSHROOM CULTIVATOR.
--- NOTE | 2020-06-15 16:00 | NUR ---
RESTRAINTS REMOVED. PT HAS AN ORDER FOR A TERMINAL WEAN FROM VENTILATOR WITH COMFORT CARE WITH POSSIBLE DISCHARGE TO HOSPICE IF PT IS STABLE POST EXTUBATION.
--- NOTE | 2020-06-15 16:17 | NUR ---
D/C Planning Regarding social service consult for terminal wean from vent to hospice. Contact patient brother Moreno [phone] regarding order for hospice. Information and choice letter was provided to Moreno. Moreno did not have a hospice preference. Faxed clinical information to [facility] hospice.
[2020-06-15] MEDS ORDERED: LORazepam 2MG/ML-1ML VIAL IV PRN (16:30)
[2020-06-15] MEDS: HYDROmorphone HCL 2 MG/ML VL IV PRN ×2 (16:39→18:29)
--- NOTE | 2020-06-15 16:55 | NUR ---
RT NOTE: PT. TERMINALLY EXTUBATED PER FAMILY REQUEST. PT. PLACED ON 2LN/C. RN MARITZA AWARE.
--- NOTE | 2020-06-15 17:12 | NUR ---
GAVE REPORT TO HOSPICE. THEY DON' T BELIEVE PT IS STABLE ENOUGH TO TRANSFER HOME ON HOSPICE AT THIS TIME. THEY'LL FOLLOW UP IN AM.
[2020-06-15] MEDS ORDERED: LABETALOL HCL 5 MG/ML 4ML SYRINGE IV PRN (17:30)
[2020-06-15] MEDS ORDERED: cloNIDine 0.1 mg/24hr 7 DAY PATCH TD SCH (17:30)
--- NOTE | 2020-06-15 17:30 | NUR ---
HTN BP 224/120 MEDICATED WITH 20 MG OF LABETALOL IVP HR, 123 S/P EXTUBATION. PT WAS EXTUBATED AT 1720. AWAITING FOR CATAPRES PATCH.
--- NOTE | 2020-06-15 17:44 | NUR ---
HTN APPLIED CATAPRES PATCH TO PT'S RUC FOR B/P 199/87 . PATCH IS GOOD FOR ONE WEEK.
--- NOTE | 2020-06-15 19:48 | NUR ---
Time of confirmed by Dr. Isbell.
--- NOTE | 2020-06-15 19:49 | NUR ---
Timeline of Events/phone calls in relationship to patient : 1954: Page sent to bell person hospitalist to pronounce the body 2000: Call made to Moreno Rai (brother) to notify of patient's . Was able to talk with him and inform him. 2004: Call made to [facility] [employer]: not eligible for organ/tissue donation per Pita ([employer] rep); Reference #[id number] 2014: Dr. Isbell, bell person hospitalist, at bedside to pronounce of body. Time of 1947 2016: Page sent to [employer] to notify of ; call back at 2019. 2020: Call made to [employer]; Sammi (labor service representative for [employer]) provided reference # [id number] 2035: Page sent to Dr. Hernandez (attending physician) to notify of patient . Esperanza (answering service rep for [employer]) left message for physician. 2058: Family, Moreno Rai brother, call back to inform me that they currently do not have a mortuary picked at this time. Myself and Radha Colbert RN verified Moreno Rai via phone for the release of the body to our morgue. No autopsy requested by family. 2144: Post mortem care completed and toe/bag/belonging tags placed in appropriate areas. 2157: Page sent to security for [facility].
[2020-06-15] MEDS ORDERED: TPN PER PHARMACY IV NR ×9 (20:00)
--- NOTE | 2020-06-17 15:30 | NUR ---
SON MEHDI PAULA HERE. BELONGINGS RELEASED TO HIM. HE GAVE ME MORTUARY INFO-[employer] [phone]. [employer] CALLED AND THEY WILL BE PICKING UP [facility]
== END 2020-06-15 22:53 | disposition expired | DRG 625 ==
LOC: SUR 06:14 → ICU WEST 14:27
PROVIDERS: ADMIT Surgery; ATTEND Internal Medicine
PROC: 5A1955Z Respiratory Ventilation, Greater than 96 Consecutive Hours (ICD-10-PCS; 2020-06-01)
PROC: 0BH17EZ Insertion of Endotracheal Airway into Trachea, Via Natural or Artificial Opening (ICD-10-PCS; 2020-06-01)
PROC: 0GTK0ZZ Resection of Thyroid Gland, Open Approach (ICD-10-PCS; principal; 2020-06-01 07:42)
PROC: 02HV33Z Insertion of Infusion Device into Superior Vena Cava, Percutaneous Approach (ICD-10-PCS; 2020-06-09)
DX: C73 Malignant neoplasm of thyroid gland (principal); J96.01 Acute respiratory failure with hypoxia; E87.2 Acidosis; N39.0 Urinary tract infection, site not specified; G47.30 Sleep apnea, unspecified; E78.5 Hyperlipidemia, unspecified; F03.90 Unspecified dementia, unspecified severity, without behavioral disturbance, psychotic disturbance, mood disturbance, and anxiety; I10 Essential (primary) hypertension; J45.909 Unspecified asthma, uncomplicated; Z66 Do not resuscitate; Z20.828 Contact with and (suspected) exposure to other viral communicable diseases
CPT/HCPCS: 36415; 36569; 36600; 70490; 71045; 76536; 80048; 80053; 81001; 82040; 82533; 82805; 82962; 83735; 84100; 84439; 84443; 84478; 85025; 85610; 85730; 87040; 87070; 87081; 87086; 87088; 87186; 87205; 87426; 93005; 93971; 94002; 94003; 94640; A4565; A4618; G0378; J0330; J0610; J0696; J1815; J2185; J2250; J2704; J3490; J7060; J7131